=== PATIENT | female | born 1955 | race Caucasian/White ===

== ENCOUNTER 2020-02-23 13:03 | Outpatient (CLI) | payer BC, SELFPAY ==
--- NOTE | ~2020-02-23 | MMUS_ITS ---
EXAMINATION: MM diagnostic edmar LT w farhana, US breast LT complete HISTORY: Six-month follow-up; status post left partial mastectomy. Left breast seroma TECHNIQUE: ML, MLO and craniocaudal 3-D tomosynthesis images of the left breast were performed and sy nthetic 2-D images were generated. Rotated lateral craniocaudal view of left breast. CAD analysis was submitted and interpreted. High resolution complete left breast ultrasound was performed. COMPARISON: 08/07/2019 bilateral diagnostic digital mammogram and complete left breast ultrasound BREAST PARENCHYMAL COMPOSITION: The breasts are heterogeneously dense, which may obscure small masses . FINDINGS: MAMMOGRAPHIC FINDINGS: There is no significant change of the asymmetric increased density on the left as well as left breast nodule retraction and asymmetric skin thickening compared to 08/07/2019. No interval suspicious mass or new architectural distortion or any malignant calcification is evident . ULTRASOUND: Stable left breast seroma at 10:00 4 cm from nipple subjacent to surgical scar, with stable circumscr ibed benign homogeneous 9 mm solid mass within the seroma. There is no significant change since 08/07. IMPRESSION: 1. No mammographic evidence of malignancy 2. Routine mammographic screening is recommended. BIRADS Category 2: Benign Reviewed, dictated and finalized at location A. IMPRESSION: 1. No mammographic evidence of malignancy 2. Routine mammographic screening is recommended. BIRADS Category 2: Benign
== END 2020-02-23 13:04 | disposition home or self-care (01) ==
PROVIDERS: PCP Family Medicine; Visit Provider Radiology Radiation Oncology
DX: C50.812 Malignant neoplasm of overlapping sites of left female breast (principal)
CPT/HCPCS: 76641; 77061; 77065; G0279

== ENCOUNTER 2020-05-28 14:50 | Outpatient (CLI) | payer BC, SELFPAY ==
--- NOTE | ~2020-05-28 | DEXA_ITS ---
Bone Density Report Name: Vanessa Goncalves Age: 65 Sex: Female Ethnicity: White Date of : 1955 Indication: height loss; Referring Provider: PHYSICIAN NOT ON STAFF Study: Bone densitometry was performed. Exam Date: May 28, 2020 Accession number: [id number] Bone Density: Region BMD T-score Z-score Classification AP Spine (L3, L4) 1.180 0.7 2.4 Normal Femoral Neck (Left) 0.936 0.8 2.2 Normal Total Hip (Left) 1.232 2.4 3.5 Normal Total Hip Bilateral Avg 1.189 2.1 3.2 Normal Femoral Neck (Right) 0.935 0.8 2.2 Normal Total Hip (Right) 1.144 1.7 2.8 Normal World Health Organization criteria for BMD impression classify patients as: Normal (T-score at or above -1.0), Osteopenia (T-score between -1.0 and -2.5), or Osteoporosis (T-score at or below -2.5). 10-year Fracture Risk: FRAX not reported because: Premenopausal woman All T-scores for Spine Total, Hip Total, Femoral Neck at or above -1.0 Previous Exams: Region Exam Age BMD T-score BMD Change BMD Change Date g/cm2 vs Baseline vs Previous AP Spine(L3, L4) 05/28/2020 65 1.180 0.7 -0.018(-1.5%)# -0.018(-1.5%)# 05/08/2012 57 1.198 0.9 Total Hip(Left) 05/28/2020 65 1.232 2.4 0.099(8.7%)* 0.099(8.7%)* 05/08/2012 57 1.133 1.6 Total Hip(Right) 05/28/2020 65 1.144 1.7 0.067(6.2%)* 0.067(6.2%)* 05/08/2012 57 1.077 1.1 *Denotes significance at 95% confidence level, LSC for AP Spine = 0.022 g/cm2, LSC for Total Hip = 0.027 g/cm2 Clinical Information Provided by Patient: Patient maximum height was 69 Menopause Age: 57 No regular weight bearing exercise Onset of menses at age 15 Premenopausal Number of children 0 Impression: The patient's bone mass is within expected range for age, gender and ethnicity. No significant bone loss was observed. Discussion: BONE DENSITY IS WITHIN EXPECTED LIMITS FOR AGE, SEX AND RACE. Bone density is within expected limits for age, sex and race at all sites measured. The patient should follow a healthful lifestyle (good nutrition with adequate calcium and vitamin D, and appropriate weight-bearing exercise). Follow-Up: Consider repeating this study in 5 years or sooner if there is some new clinical indication. Reported by: LEÓN on 05/28/2020 3:15:00 PM. Reviewed, dictated and finalized at location [facility]onal[facility]
== END 2020-05-28 14:51 | disposition home or self-care (01) ==
PROVIDERS: PCP Family Medicine
DX: C50.212 Malignant neoplasm of upper-inner quadrant of left female breast (principal); Z17.0 Estrogen receptor positive status [ER+]
CPT/HCPCS: 77080

== ENCOUNTER 2020-08-13 13:25 | Outpatient (CLI) | payer BC, SELFPAY ==
--- NOTE | ~2020-08-13 | MMUS_ITS ---
EXAMINATION: MM diagnostic edmar BI w farhana, US breast LT limited HISTORY: History of left breast cancer. Prior surgery and radiation therapy. TECHNIQUE: Additional 3-D tomosynthesis images of the left breast were performed and synthetic 2-D im ages were generated. CAD analysis was submitted and interpreted. High resolution left breast ultrasou nd was performed. COMPARISON: Comparison to multiple prior studies sequentially, with oldest reviewed study dated 11/2017. BREAST PARENCHYMAL COMPOSITION: Breast composed of scattered areas of fibroglandular density FINDINGS: MAMMOGRAPHIC FINDINGS: The right breast is stable without evidence for malignancy. Asymmetry in the central aspect of the le ft breast corresponds to the area of previous lumpectomy and radiation therapy. There is overlying sk in thickening. ULTRASOUND: Limited left breast ultrasound: There is a complex fluid collection had 9:00 in the area of previous surgical scarring now measuring 3.6 x 2 x 3.5 cm. There is an associated echogenic mass. This complex fluid collection has diminished in size. It measured 5.2 x 2.5 x 4.7 cm on 02/23/2020 and 7.3 x 2.7 x 5.6 cm on 08/07/2019. IMPRESSION: 1. Decreasing size of complex fluid collection in the left breast, compatible with maturing postopera tive seroma/hematoma. No new masses, calcifications or architectural distortion are identified to sug gest malignancy. 2. Routine yearly screening mammogram and regular clinical breast examination are recommended. BI-RADS Category 2: Benign finding(s). Reviewed, dictated and finalized at location A. [employer] IMPRESSION: 1. Decreasing size of complex fluid collection in the left breast, compatible w ith maturing postoperative seroma/hematoma. No new masses, calcifications or ar chitectural distortion are identified to suggest malignancy. 2. Routine yearly screening mammogram and regular clinical breast examination a re recommended. BI-RADS Category 2: Benign finding(s).
== END 2020-08-13 13:26 | disposition home or self-care (01) ==
LOC: ANHIMG 13:28
PROVIDERS: PCP Family Medicine; Visit Provider Radiology Radiation Oncology
DX: C50.812 Malignant neoplasm of overlapping sites of left female breast (principal)
CPT/HCPCS: 76642; 77062; 77066; G0279

== ENCOUNTER 2020-11-10 17:47 | Outpatient (CLI) | payer BC, SELFPAY | END 2020-11-10 17:48 | disposition home or self-care (01) | LOC: ANHCOVIDVC 17:47 | PROVIDERS: PCP Family Medicine | DX: Z23 Encounter for immunization (principal) | CPT/HCPCS: 0001A; 91300 ==

== ENCOUNTER 2020-12-01 17:46 | Outpatient (CLI) | payer BC, SELFPAY | END 2020-12-01 17:47 | disposition home or self-care (01) | LOC: ANHCOVIDVC 17:46 | PROVIDERS: PCP Family Medicine | DX: Z23 Encounter for immunization (principal) | CPT/HCPCS: 0002A; 91300 ==

== ENCOUNTER 2022-03-01 15:07 | Outpatient (CLI) | payer BC, SELFPAY ==
--- NOTE | ~2022-03-01 | MM_ITS ---
EXAMINATION: MM screening [facility] BI w farhana HISTORY: Screening TECHNIQUE: Craniocaudal and mediolateral oblique 3-D tomosynthesis images were obtained and synthetic 2-D images were generated. CAD analysis was submitted and interpreted. COMPARISON: Comparison to multiple prior studies sequentially, with oldest reviewed study dated 10/21. BREAST PARENCHYMAL COMPOSITION: Breast composed of scattered areas of fibroglandular density FINDINGS: Stable asymmetry and architectural distortion in the left breast, consistent with previous lumpectomy and radiation therapy. There is no evidence of new suspicious mass, calcification, or arch itectural distortion to suggest malignancy in either breast. There has been no suspicious interval ch tyrel. IMPRESSION: 1. No mammographic evidence of malignancy. 2. Recommend routine screening mammography in one year. BI-RADS Category 2: Benign finding(s). Reviewed, dictated and finalized at location A.
== END 2022-03-01 15:08 | disposition home or self-care (01) ==
PROVIDERS: PCP Family Medicine
DX: Z12.31 Encounter for screening mammogram for malignant neoplasm of breast (principal)
CPT/HCPCS: 77063; 77067

== ENCOUNTER → 2023-06-27 11:02 | Outpatient (CLI) | payer MEDICARE, SELFPAY ==
--- NOTE | ~2023-06-27 | MM_ITS ---
EXAMINATION: MM screening edmar BI w farhana HISTORY: Screening mammogram TECHNIQUE: Craniocaudal and mediolateral oblique 3-D tomosynthesis images were obtained and synthetic 2-D images were generated. CAD analysis was submitted and interpreted. COMPARISON: Serial mammographic and sonographic examinations dating back to December 20, 2018 BREAST PARENCHYMAL COMPOSITION: There are scattered areas of fibroglandular density. FINDINGS: There is chronic left-sided mammographic asymmetry and architectural distortion and retract ion related to prior left partial mastectomy for breast cancer, with overall diminishing in size of t he asymmetric area of density consistent with scar retraction. There are scattered bilateral benign calcifications. There is no evidence of interval suspicious mass, calcification, or new architectural distortion to s uggest malignancy in either breast. There has been no suspicious interval change. IMPRESSION: 1. Status post left partial mastectomy for breast cancer. No mammographic evidence of malignancy. 2. Recommend routine screening mammography in one year. BI-RADS Category 2: Benign finding(s). Reviewed, dictated and finalized at location A. IMPRESSION: 1. Status post left partial mastectomy for breast cancer. No mammographic evide nce of malignancy. 2. Recommend routine screening mammography in one year. BI-RADS Category 2: Benign finding(s).
== END ==
PROVIDERS: PCP Family Medicine
DX: Z12.31 Encounter for screening mammogram for malignant neoplasm of breast (principal)
CPT/HCPCS: 77063; 77067

== ENCOUNTER 2023-11-14 13:22 | Outpatient (CLI) | payer MEDICARE, SELFPAY ==
--- NOTE | ~2023-11-14 | DEXA_ITS ---
Bone Density Report Name: VALERIE DESAI Age: 68 Sex: Female Ethnicity: White Date of : 1955 Indication: postmenopausal; screening for osteoporosis; height loss; cancer; hysterectomy; Referring Provider: UNKNOWN, UNKNOWN Study: Bone densitometry was performed. Exam Date: November 14, 2023 Accession number: [id number] Bone Density: Region BMD T-score Z-score Classification AP Spine (L3, L4) 1.183 0.7 2.7 Normal Femoral Neck (Left) 0.898 0.4 2.0 Normal Total Hip (Left) 1.137 1.6 2.9 Normal Femoral Neck (Right) 0.924 0.7 2.3 Normal Total Hip (Right) 1.055 0.9 2.2 Normal Total Hip Mean 1.096 1.3 2.6 Normal World Health Organization criteria for BMD impression classify patients as: Normal (T-score at or above -1.0), Osteopenia (T-score between -1.0 and -2.5), or Osteoporosis (T-score at or below -2.5). 10-year Fracture Risk: FRAX not reported because: All T-scores for Spine Total, Hip Total, Femoral Neck at or above -1.0 Clinical Information Provided by Patient: Has used the following medications: Vitamin D Has the following medical conditions: Cancer, Hysterectomy Patient maximum height was 69 Menopause Age: 56 No regular weight bearing exercise Drinks caffeinated beverages Onset of menses at age 15 Number of children 0 Impression: The patient has normal bone mass. Discussion: BONE DENSITY IS ABOVE THE MINIMUM DESIRABLE LEVEL AT ALL SKELETAL SITES TESTED. This patient?s bone mineral density is above the minimum desirable level (T-score -1.0 or better) at all sites measured. The patient should follow a healthful lifestyle (good nutrition with adequate calcium and vitamin D, and appropriate weight-bearing exercise). Follow-Up: Consider repeating this study in 5 years or sooner if there is some new clinical indication. Reported by: LEÓN on 11/14/2023 1:56:00 PM. Reviewed, dictated and finalized at location ALian SUN
== END 2023-11-14 13:23 ==
PROVIDERS: PCP Family Medicine
DX: C50.212 Malignant neoplasm of upper-inner quadrant of left female breast (principal); Z17.0 Estrogen receptor positive status [ER+]; Z79.811 Long term (current) use of aromatase inhibitors
CPT/HCPCS: 77080

== ENCOUNTER 2024-01-09 15:21 | Outpatient (CLI) | payer MEDICARE, SELFPAY ==
--- NOTE | ~2024-01-09 | XR_ITS ---
EXAMINATION:XR cervical spine 4-5V DATE: 01/09/2024 16:22 INDICATION: Cervical radiculopathy with left arm and hand pain and numbness TECHNIQUE: AP, lateral, lateral swimmers and odontoid views of the cervical spine are provided. COMPARISON: None FINDINGS: Alignment is normal. Odontoid is intact. Normal atlantoaxial interval. Vertebral body heights are no rmal. Moderate disc height loss at C5-C6 and C6-C7. There appears be at least mild central canal sten osis resulting from prominent posterior endplate osteophyte at C5. There is multilevel mild cervical facet osteoarthritis. Visualized apices of lungs are clear. Prevertebral soft tissues are normal. IMPRESSION: 1. Moderate lower cervical spondylosis. Reviewed, dictated and finalized at location A.
== END 2024-01-09 15:22 ==
LOC: GOSHIMG 15:22
PROVIDERS: PCP Family Medicine; Visit Provider Family Medicine
DX: M47.22 Other spondylosis with radiculopathy, cervical region (principal)
CPT/HCPCS: 72050

== ENCOUNTER 2024-03-11 06:33 | Inpatient (IN) | payer MEDICARE, SELFPAY ==
[2024-03-11] VITALS (19 sets, daily range): BP systolic 118–204; BP diastolic 59–89; PULSE 69–94; RESP 14–18; TEMP 36.4–36.7; O2SAT 94–100; BMI 42.4
--- NOTE | ~2024-03-11 | XR_ITS ---
EXAMINATION: XR surgery orthopedic DATE: 03/12/2024 09:47 INDICATION: ORIF right ankle fracture TECHNIQUE: 2 fluoroscopic images of the right ankle were obtained during procedure performed by Dr. Miguel A cochran. Radiologist was not present for the imaging or procedure. The amount of fluoroscopy time use d during this procedure was 0.5 minutes. COMPARISON: 03/11/2024 FINDINGS: Interval reduction and internal fixation of the previously seen trimalleolar fracture of the right an kle. The medial malleolar fractures fixed with a cannulated lag screw. The lateral malleolar fracture s fixed with a interfragmentary screw and lateral plate and screws. The posterior malleolar fragment remains unfixed. The alignment is essentially anatomic with no discernible displacement of the fractu re fragments. The joint space appears normal with a congruent ankle mortise. Minimal expected postope rative soft tissue gas. IMPRESSION: 1. Essentially anatomic alignment post reduction internal fixation of a trimalleolar fracture of the right ankle. Reviewed, dictated and finalized at location A. IMPRESSION: 1. Essentially anatomic alignment post reduction internal fixation of a trimall eolar fracture of the right ankle.
--- NOTE | ~2024-03-11 | XR_ITS ---
Right ankle Technique: AP, oblique, and lateral views were obtained. Clinical History: Injury Findings: There is oblique, displaced fracture the distal fibular shaft, approximately 3.5 cm proxima l to the tip lateral malleolus. There is a transverse displaced fracture through the base the medial malleolus. There is a probable posterior annulus fracture, also mildly displaced. There is moderate t o severe lateral subluxation of the talar dome with respect to the distal tibial plafond on AP projec tion, with associated marked widening of the medial aspect of ankle mortise. There is diffuse soft ti ssue swelling about the ankle. Impression: Displaced acute probable trimalleolar fractures, as detailed above, with significant derangement of t he ankle mortise, as detailed above. Reviewed, dictated and finalized at location . Impression: Displaced acute probable trimalleolar fractures, as detailed above, with signif icant derangement of the ankle mortise, as detailed above.
--- NOTE | ~2024-03-11 | XR_ITS ---
XR ankle RT min 3V Ordering provider: Jarred Odonnell MD History: . Post reduction . Comparison: March 11, 2024 FINDINGS: BONES: Fracture of the medial and lateral malleoli with status post placement of cast. Alignment is i mproved. JOINT SPACES: Normal. SOFT TISSUES: Swelling seen over the medial and lateral malleoli. IMPRESSION: Bimalleolar fractures status post placement of cast. Reviewed, dictated and finalized at location A.
[2024-03-11] MEDS: HYDROmorphone HCL INJ (*CRX) 1 MG/ML SYR IV PUSH (07:16)
[2024-03-11] MEDS: ONDANSETRON INJ 4 MG/2 ML VIAL IV PUSH (07:16)
[2024-03-11] MEDS: MIDAZOLAM HCL (*CRX) 2 MG/2 ML VIAL 4 MG IV PUSH (07:34)
[2024-03-11 07:54] LABS: Basophils Percent Auto 0.6 % (0.2-1.2); Eosinophils Absolute Auto 0.1 K/mm3 (0-0.3); Eosinophils Percent Auto 1.7 % (0-4.4); Hematocrit 33.3 % (37.0-47.0); Hemoglobin 10.2 g/dL (12.0-15.0); Immature Granulocyte Absolute 0.01 K/mm3 (0.00-0.031); Immature Granulocyte Percent A 0.2 % (0-0.5); Lymphocytes Absolute Auto 0.63 K/mm3 (0.9-3.2); Lymphocytes Percent Auto 9.8 % (18.3-44.2); Mean Corpuscular HGB Conc 30.6 g/dl (32-36); Mean Corpuscular Hemoglobin 25.8 pg (26-34); Mean Corpuscular Volume 84.3 fl (80-100); Mean Platelet Volume 11.2 fl (7.4-10.4); Monocytes Absolute Auto 0.7 K/mm3 (0.1-0.6); Monocytes Percent Auto 10.1 % (2.6-8.5); Neutrophils Percent Auto 77.6 % (45.5-73.1); Platelet Count Result 279 k/mm3 (150-375); Red Blood Count 3.95 M/mm3 (4.2-5.4); Red Cell Distribution Width 16.9 % (11.5-14.5); White Blood Count 6.4 K/mm3 (4.5-10.0)
[2024-03-11 08:06] LABS: Alanine Aminotransferase 29 U/L (6-35); Albumin Level 4.1 g/dL (3.5-5.1); Alkaline Phosphatase 127 U/L (38-126); Anion Gap 11 mmol/L (4-12); Aspartate Amino Transferase 33 U/L (14-36); Bilirubin,Total 0.5 mg/dL (0.2-1.3); Blood Urea Nitrogen 15 mg/dL (7-17); Calcium 9.5 mg/dL (8.4-10.2); Carbon Dioxide 23 mmol/L (22-30); Chloride 102 mmol/L (98-107); Estimated CRCL calculation 90 ml/min; Estimated Glomerular Filt Rate > 60; Glucose 137 mg/dL (65-110); Potassium 3.9 mmol/L (3.4-5.0); Sodium 136 mmol/L (137-145)
[2024-03-11 08:26] LABS: INR 1.2; Prothrombin Time 15.8 Seconds (11.1-14.7)
--- NOTE | 2024-03-11 08:35 | ED.FALL ---
HPI - Fall General Chief Complaint: Fall Stated Complaint: fall Time Seen by Provider: 03/11/24 07:00 History of Present Illness HPI Narrative: This is a 68-year-old female with history of iron deficiency and hypertension, presents emergency department complaining of right ankle pain after a ground fall. The patient states she was walking in her bedroom, when she slipped on carpet, resulting in the forced rotation of her ankle, associated with 9/10 dull pain and displacement. She denies head injury or loss of consciousness. She has no other complaints at this time. Related Data Home Medications Medication Instructions Recorded Confirmed ferrous sulfate 325 mg (65 mg 325 mg PO BID 08/05/19 03/11/24 iron) tablet (iron) ibuprofen 800 mg tablet 800 mg PO Q6H 06/13/23 03/11/24 Allergies Allergy/AdvReac Type Severity Reaction Status Date / Time pentazocine Allergy Severe Confusion Verified 03/11/24 10:51 clindamycin Allergy Intermediate Itching Verified 03/11/24 10:51 trolamine salicylate Allergy Intermediate RASH OVER Verified 03/11/24 10:51 ALL BODY adhesive tape Allergy Mild Other Verified 03/11/24 10:51 latex Allergy Mild Itching Verified 03/11/24 10:51 levothyroxine Allergy Mild Rash Verified 03/11/24 10:51 bacitracin Allergy Unknown Unknown Verified 03/11/24 10:51 benzalkonium chloride Allergy Unknown Unknown Verified 03/11/24 10:51 epinephrine Allergy Unknown Unknown Verified 03/11/24 10:51 gramicidin D Allergy Unknown Unknown Verified 03/11/24 10:51 hydrocortisone Allergy Unknown Unknown Verified 03/11/24 10:51 lamotrigine Allergy Unknown Rash Verified 03/11/24 10:51 levofloxacin Allergy Unknown Skin Verified 03/11/24 10:51 Reaction morphine Allergy Unknown family hx Verified 03/11/24 10:51 neomycin Allergy Unknown Rash Verified 03/11/24 10:51 omeprazole Allergy Unknown Unknown Verified 03/11/24 10:51 Penicillins Allergy Unknown Unknown Verified 03/11/24 10:51 polymyxin B Allergy Unknown Unknown Verified 03/11/24 10:51 codeine AdvReac Unknown sick to Verified 03/11/24 10:51 stomach ethanolamine AdvReac Unknown vertigo Verified 03/11/24 10:51 nortriptyline AdvReac Unknown headaches Verified 03/11/24 10:51 worse Sulfa (Sulfonamide AdvReac Unknown sick to Verified 03/11/24 10:51 Antibiotics) stomach Review of Systems Review of Systems: All systems reviewed & are unremarkable except as noted in HPI and below PMFSH Past Medical History Medical History Bartonella infection Iron deficiency anemia, unspecified Trapezius strain Surgical History Surgical History H/O: hysterectomy History of lumpectomy of left breast Family History Family History Father Family history of cardiovascular disease Diabetes mellitus Family history of malignant neoplasm Mother Cerebrovascular accident Social History Social History Smoking status: Never smoker Alcohol intake: never Alcohol use details: half a beer once a month Substance use: never Substance use type: does not use Do You Feel Safe in your Home?: Yes Lack of Transportation: No Lack of Food: Never True Current Housing: I Have Housing Concerned About Future Housing: No Difficulty Paying Gas/Electric Bills: No Difficulty Paying for Meds: No Currently Unemployed: No Education: Decline to Answer Difficulty w/ Childcare or Family Care: No Living arrangements: with family Spiritual care concerns: No Exam Narrative: GENERAL: Well-developed, well-nourished, in significant distress due to pain HEAD: Normocephalic, atraumatic. EYES: PERRLA and EOMI. NECK: Supple. No midline spine tenderness to palpation, step-off or crepitus CHEST: Clear to auscultation. No respiratory distress. No wheeze
[2024-03-11] MEDS: SODIUM CHLORIDE 0.9% IV 1,000 ML 999 ML IV CONT (09:32)
--- NOTE | 2024-03-11 09:43 | PM.CNOR ---
Assessment and Plan Assessment and plan (1) Trimalleolar fracture of right ankle: Code(s): S82.851A - Displaced trimalleolar fracture of right lower leg, initial encounter for closed fracture Status: Acute Assessment and Plan: Patient has a trimalleolar ankle fracture right. She will require open reduction internal fixation with plates and screws. Plan on proceeding tomorrow morning. Depending on the amount of swelling she has in her ankle. History of Present Illness HPI Consult date: 03/11/24 Chief complaint: right ankle trimalleolar fracture Narrative: 68-year-old female fell on a rug suffering a trimalleolar fracture of her right ankle. Review of Systems Musculoskeletal: Musculoskeletal: Reports myalgias, Reports arthralgias, Reports joint swelling and Reports stiffness PMFSH Past Medical History Medical History Bartonella infection Iron deficiency anemia, unspecified Trapezius strain Surgical History Surgical History H/O: hysterectomy History of lumpectomy of left breast Family History Family History Father Family history of cardiovascular disease Diabetes mellitus Mother Cerebrovascular accident Other Family history of malignant neoplasm Social History Social History Smoking status: Never smoker Alcohol intake: current Alcohol use details: half a beer once a month Substance use: current Substance use type: does not use Do You Feel Safe in your Home?: Yes Lack of Transportation: No Lack of Food: Never True Current Housing: I Have Housing Concerned About Future Housing: No Difficulty Paying Gas/Electric Bills: No Difficulty Paying for Meds: No Currently Unemployed: No Education: Master's Degree or Higher Difficulty w/ Childcare or Family Care: No Living arrangements: with family Meds Home Medications and Allergies Home Medications Medication Instructions Recorded Confirmed Type ferrous sulfate 325 mg (65 mg 325 mg PO BID 08/05/19 01/08/24 History iron) tablet (iron) ibuprofen 800 mg tablet 800 mg PO Q6H 06/13/23 01/08/24 History amitriptyline 10 mg tablet See Rx Instructions .Route 09/17/23 01/08/24 Rx .COMPLEX #270 tabs telmisartan 20 mg tablet 20 mg PO DAILY #90 tabs 01/08/24 01/08/24 Rx cyclobenzaprine 5 mg tablet 5 mg PO BID PRN muscle spasm #60 01/29/24 Rx tabs spironolactone 25 mg tablet 25 mg PO .COMPLEX #60 tabs 02/05/24 Rx Allergies Allergy/AdvReac Type Severity Reaction Status Date / Time pentazocine Allergy Severe Confusion Verified 01/08/24 15:02 clindamycin Allergy Intermediate Itching Verified 01/08/24 15:02 trolamine salicylate Allergy Intermediate RASH OVER Verified 01/08/24 15:02 ALL BODY adhesive tape Allergy Mild Other Verified 01/08/24 15:02 levothyroxine Allergy Mild Rash Verified 01/08/24 15:02 bacitracin Allergy Unknown Unknown Verified 01/08/24 15:02 benzalkonium chloride Allergy Unknown Unknown Verified 01/08/24 15:02 epinephrine Allergy Unknown Unknown Verified 01/08/24 15:02 gramicidin D Allergy Unknown Unknown Verified 01/08/24 15:02 hydrocortisone Allergy Unknown Unknown Verified 01/08/24 15:02 lamotrigine Allergy Unknown Rash Verified 01/08/24 15:02 latex Allergy Unknown Unknown Verified 01/08/24 15:02 levofloxacin Allergy Unknown Skin Verified 01/08/24 15:02 Reaction morphine Allergy Unknown family hx Verified 01/08/24 15:02 neomycin Allergy Unknown Unknown Verified 03/11/24 07:15 omeprazole Allergy Unknown Unknown Verified 01/08/24 15:02 Penicillins Allergy Unknown Unknown Verified 01/08/24 15:02 polymyxin B Allergy Unknown Unknown Verified 03/11/24 07:15 codeine AdvReac Unknown sick to Verified 03/11/24 07:15 stomach ethanolamine AdvReac Unknown vertigo V
--- NOTE | 2024-03-11 10:38 | PC.NURSE ---
This patient, Vanessa Goncalves, was admitted to 3 [facility] Surg Room 313-01 10:30. Patient/family oriented to hospital policies and general routines including ID bracelet, bed and alarms, visiting hours, pain management, procedures, bathroom and other care routines, personal items, smoking policy, room service/diet, and visiting hours. Information on how to activate the Rapid Response Team has been discussed. Patient/Family are encouraged to report perceived risks to care and to ask questions if they do not understand what they are told or what they should do.
[2024-03-11] MEDS: DEXTROSE 5%/LACTATED RINGERS 1,000 ML 150 ML IV CONT ×2 (11:51→21:11)
--- NOTE | 2024-03-11 13:26 | PM.IMHP ---
H&P: HPI History of Present Illness Date/Time: 03/11/24 13:26 Chief Complaint: Right foot pain s/p fall Narrative: Vanessa Goncalves is a 68 year old female with PMH of SARA and atypical migraines presents from home after slipping and falling with resulting injury to the right foot. She denies any loss of consciousness. She states she did not striker her head. She does not report frequent falls. She describes the incident as having slipped when getting up to obtain an ibuprofen. Vanessa describes a history of atypical migraines with neurological presentations (slurred speech, left eye drooping) and recent workup for generalized muscle spasms/pain. She has seen specialty care without clear answers as of yet, but is having some symptoms today of left lower ext. spasming. This is reportedly improved with hot/cold therapy which she is utilizing now. Vanessa presented and had imaging findings of a bimalleoloar fracture of the right ankle. Orthopedics was consulted and there is a plan for ORIF tomorrow am. With the exception of a mild anemia, hgb 10, labwork was essentially unremarkable. Vanessa will be admitted for further management of the right ankle fracture. Review of Systems Review of Systems: CONSTITUTIONAL: ?No weight loss, fever, chills, weakness, or fatigue. CARDIOVASCULAR: ?No chest pain, chest pressure or chest discomfort. No palpitations.? No PND or orthopnea. RESPIRATORY: ?No shortness of breath, cough or sputum. GASTROINTESTINAL: ?No anorexia, nausea, vomiting, constipation, or diarrhea. No abdominal pain or bloody stools. NEUROLOGICAL: Chronic atypical migraine symptoms with muscle spasms and intermittent slurred speech. MUSCULOSKELETAL: ?See hpi. HEMATOLOGIC: ?States history of SARA. ROS negative other than listed above across 14 systems [facility] Past Medical History Medical History Bartonella infection Iron deficiency anemia, unspecified Trapezius strain Surgical History Surgical History H/O: hysterectomy History of lumpectomy of left breast Family History Family History Father Family history of cardiovascular disease Diabetes mellitus Family history of malignant neoplasm Mother Cerebrovascular accident Social History Social History Smoking status: Never smoker Alcohol intake: never Alcohol use details: half a beer once a month Substance use: never Substance use type: does not use Do You Feel Safe in your Home?: Yes Lack of Transportation: No Lack of Food: Never True Current Housing: I Have Housing Concerned About Future Housing: No Difficulty Paying Gas/Electric Bills: No Difficulty Paying for Meds: No Currently Unemployed: No Education: Decline to Answer Difficulty w/ Childcare or Family Care: No Living arrangements: with family Spiritual care concerns: No Meds Home Medications and Allergies Home Medications Medication Instructions Recorded Confirmed Type ferrous sulfate 325 mg (65 mg 325 mg PO BID 08/05/19 03/11/24 History iron) tablet (iron) ibuprofen 800 mg tablet 800 mg PO Q6H 06/13/23 03/11/24 History amitriptyline 10 mg tablet See Rx Instructions .Route 09/17/23 03/11/24 Rx .COMPLEX #270 tabs telmisartan 20 mg tablet 20 mg PO DAILY #90 tabs 01/08/24 03/11/24 Rx cyclobenzaprine 5 mg tablet 5 mg PO BID PRN muscle spasm #60 01/29/24 03/11/24 Rx tabs spironolactone 25 mg tablet 25 mg PO .COMPLEX #60 tabs 02/05/24 03/11/24 Rx Allergies Allergy/AdvReac Type Severity Reaction Status Date / Time pentazocine Allergy Severe Confusion Verified 03/11/24 10:51 clindamycin Allergy Intermediate Itching Verified 03/11/24 10:51 trolamine salicylate Allergy Intermediate RASH OVER Verified 03/11/24 10:51
[2024-03-11] MEDS: HYDROcodone/acetaminophen (*CRX) 5-325 MG TABLET 1 TAB PO ×2 (15:26→23:22)
[2024-03-11] MEDS: IBUPROFEN 600 MG TABLET PO (19:02)
[2024-03-11] MEDS: HYDROmorphone HCL INJ (*CRX) 1 MG/ML SYR 0.5 MG IV PUSH (19:03)
[2024-03-12] VITALS (18 sets, daily range): BP systolic 107–170; BP diastolic 64–100; PULSE 55–93; RESP 12–20; TEMP 36.1–36.7; O2SAT 91–99
[2024-03-12] MEDS: HYDROcodone/acetaminophen (*CRX) 5-325 MG TABLET 1 TAB PO ×2 (03:04→15:06)
[2024-03-12] MEDS: DEXTROSE 5%/LACTATED RINGERS 1,000 ML 150 ML IV CONT (04:23)
[2024-03-12] MEDS: HYDROmorphone HCL INJ (*CRX) 1 MG/ML SYR 0.5 MG IV PUSH ×4 (06:04→22:22)
--- NOTE | 2024-03-12 06:46 | WPDHPUPDATE1 ---
History and Physical Update Update Date/Time: 03/12/24 06:46 History and Physical has been reviewed, including an updated exam of the patient. There are NO changes in the patient's condition. Risks, benefits, and alternatives have been discussed and questions answered. Patient agrees to proceed with procedure.
[2024-03-12] MEDS: FLUTICASONE PROPIONATE 0.05% NA SPR 16 GM BTL (*BKC) 2 SPRAY NASAL (06:50)
[2024-03-12 07:04] LABS: Anion Gap 11 mmol/L (4-12); Blood Urea Nitrogen 12 mg/dL (7-17); Calcium 9.2 mg/dL (8.4-10.2); Carbon Dioxide 23 mmol/L (22-30); Chloride 101 mmol/L (98-107); Estimated CRCL calculation 103 ml/min; Estimated Glomerular Filt Rate > 60; Glucose 133 mg/dL (65-110); Potassium 4.4 mmol/L (3.4-5.0); Sodium 135 mmol/L (137-145)
[2024-03-12 07:11] LABS: Basophils Percent Auto 0.5 % (0.2-1.2); Eosinophils Absolute Auto 0.1 K/mm3 (0-0.3); Eosinophils Percent Auto 2.2 % (0-4.4); Hematocrit 34.4 % (37.0-47.0); Immature Granulocyte Absolute 0.02 K/mm3 (0.00-0.031); Immature Granulocyte Percent A 0.3 % (0-0.5); Lymphocytes Percent Auto 13.5 % (18.3-44.2); Mean Corpuscular HGB Conc 29.1 g/dl (32-36); Mean Corpuscular Hemoglobin 25.6 pg (26-34); Mean Platelet Volume 11.7 fl (7.4-10.4); Monocytes Absolute Auto 0.8 K/mm3 (0.1-0.6); Monocytes Percent Auto 13.8 % (2.6-8.5); Neutrophils Absolute Auto 4.1 K/mm3 (1.3-6.7); Neutrophils Percent Auto 69.7 % (45.5-73.1); Platelet Count Result 276 k/mm3 (150-375); Red Blood Count 3.91 M/mm3 (4.2-5.4); Red Cell Distribution Width 17.1 % (11.5-14.5); White Blood Count 5.9 K/mm3 (4.5-10.0)
--- NOTE | 2024-03-12 07:38 | PC.NURSE ---
To OR per [DEMETRIS ], IV [ ]. Report given to [ ].
--- NOTE | 2024-03-12 08:02 | WPDANESEPPF ---
Anes - Initial Pre Proc Eval Procedure: Operation Date: 03/12/24 08:30 Proposed Procedures p Open Reduction Internal Fixation Right Ankle - Rodney Francis MD Date/Time: 03/12/24 08:02 Surgeon: Coretta Jean-Baptiste PA-C Pre Op Diagnosis: right ankle trimalleolar fracture Patient Data Age: 68 Gender: F Height: 1.68 m Weight: 119.3 kg Last Vital Signs Temp 36.5 C 03/12/24 05:44 Pulse 93 03/12/24 05:44 Resp 18 03/12/24 05:44 BP 152/90 H 03/12/24 06:48 Pulse Ox 97 03/12/24 05:44 O2 Del Method Nasal Cannula 03/11/24 12:00 O2 Flow Rate 1 03/11/24 12:00 Allergies Allergy/AdvReac Type Severity Reaction Status Date / Time pentazocine Allergy Severe Confusion Verified 03/11/24 10:51 clindamycin Allergy Intermediate Itching Verified 03/11/24 10:51 trolamine salicylate Allergy Intermediate RASH OVER Verified 03/11/24 10:51 ALL BODY adhesive tape Allergy Mild Other Verified 03/11/24 10:51 latex Allergy Mild Itching Verified 03/11/24 10:51 levothyroxine Allergy Mild Rash Verified 03/11/24 10:51 bacitracin Allergy Unknown Unknown Verified 03/11/24 10:51 benzalkonium chloride Allergy Unknown Unknown Verified 03/11/24 10:51 epinephrine Allergy Unknown Unknown Verified 03/11/24 10:51 gramicidin D Allergy Unknown Unknown Verified 03/11/24 10:51 hydrocortisone Allergy Unknown Unknown Verified 03/11/24 10:51 lamotrigine Allergy Unknown Rash Verified 03/11/24 10:51 levofloxacin Allergy Unknown Skin Verified 03/11/24 10:51 Reaction morphine Allergy Unknown family hx Verified 03/11/24 10:51 neomycin Allergy Unknown Rash Verified 03/11/24 10:51 omeprazole Allergy Unknown Unknown Verified 03/11/24 10:51 Penicillins Allergy Unknown Unknown Verified 03/11/24 10:51 polymyxin B Allergy Unknown Unknown Verified 03/11/24 10:51 codeine AdvReac Unknown sick to Verified 03/11/24 10:51 stomach ethanolamine AdvReac Unknown vertigo Verified 03/11/24 10:51 nortriptyline AdvReac Unknown headaches Verified 03/11/24 10:51 worse Sulfa (Sulfonamide AdvReac Unknown sick to Verified 03/11/24 10:51 Antibiotics) stomach Home Medications Medication Instructions Recorded Confirmed Type ferrous sulfate 325 mg (65 mg 325 mg PO BID 08/05/19 03/11/24 History iron) tablet (iron) ibuprofen 800 mg tablet 800 mg PO Q6H 06/13/23 03/11/24 History amitriptyline 10 mg tablet See Rx Instructions .Route 09/17/23 03/11/24 Rx .COMPLEX #270 tabs telmisartan 20 mg tablet 20 mg PO DAILY #90 tabs 01/08/24 03/11/24 Rx cyclobenzaprine 5 mg tablet 5 mg PO BID PRN muscle spasm #60 01/29/24 03/11/24 Rx tabs spironolactone 25 mg tablet 25 mg PO .COMPLEX #60 tabs 02/05/24 03/11/24 Rx Laboratory Tests 03/11/24 03/12/24 07:49 06:12 WBC Pending RBC Pending Hgb Pending Hct Pending MCV Pending MCH Pending MCHC Pending RDW Pending Plt Count Pending MPV Pending Immature Gran % (Auto) Pending Neut % (Auto) Pending Lymph % (Auto) Pending [place] % (Auto) Pending Eos % (Auto) Pending Baso % (Auto) Pending Lymph # (Auto) Pending [place] # (Auto) Pending Eos # (Auto) Pending Baso # (Auto) Pending Abs Immat Gran (auto) Pending Absolute Neuts (auto) Pending Absolute Nucleated RBC Pending Nucleated RBC % Pending PT 15.8 H Seconds (11.1-14.7) INR 1.2 Sodium 136 L mmol/L 135 L mmol/L (137-145) (137-145) Potassium 3.9 mmol/L 4.4 mmol/L (3.4-5.0) (3.4-5.0) Chloride 102 mmol/L 101 mmol/L (98-107) (98-107) Carbon Dioxide 23 mmol/L 23 mmol/L (22-30) (22-30) Anion Gap 11 mmol/L 11 mmol/L (4-12) (4-12) BUN 15 mg/dL 12 mg/dL (7-17) (7-17) Creatinine 0.70 mg/dL 0.60 L mg/dL (0.7-1.0) (0.7-1.0) Estim Creat Clear Calc 90 ml/min 103 ml/min
[2024-03-12 08:03] LABS: Anisocytosis 1+; Hypochromasia 1+; Ovalocytes 1+; Platelet Estimate Adequate (Adequate); Schistocytes Rare
--- NOTE | 2024-03-12 08:29 | SUR.PREOP ---
0802-Dr. Cramer states EKG not needed.
[2024-03-12] MEDS: ceFAZolin 2 GM/D5W 50 ML 2 GM/50 ML BAG IVPB ×3 (08:38→23:21)
--- NOTE | 2024-03-12 08:55 | PM.IMPN ---
Progress Note: A&P Assessment and Plan (1) Trimalleolar fracture of right ankle: Code(s): S82.851A - Displaced trimalleolar fracture of right lower leg, initial encounter for closed fracture Status: Acute Assessment and Plan: Patient reports a mechanical fall that resulted in a displaced acute probable trimalleolar fractures with significant derangement of the ankle mortise. Denies LOC and head trauma. - Ankle XR: displaced acute probable trimalleolar fractures with significant derangement of the ankle mortise. - Ankle XR: s/p cast placement - s/p ORIF bimalleolar components on 03/[address] Francis - PT/OT per ortho - DVT ppx per ortho (2) Migraine without aura, intractable, without status migrainosus: Code(s): G43.019 - Migraine without aura, intractable, without status migrainosus Status: Acute Assessment and Plan: Patient has long history of atypical migraine with neurological symptoms including slurred speech, weakness, and muscle spasms. She notes that she stopped all medications other than iron approximately 3 weeks ago. She has improvement with supplemental o2, hot/cold therapy and ibuprofen per her report. She is 100% on 1L (utilized for headache, no pulmonary complaints) - PCP following, referral made to neurology at last appointment (3) Iron deficiency: Code(s): E61.1 - Iron deficiency Status: Acute Assessment and Plan: Chronic, continue iron supplementation. No signs of active bleeding. - Monitor with daily labs Time Spent With Patient Time with patient: 25 - 35 minutes Subjective Date/time seen: 03/12/24 08:55 Interval history: 68 year old female with past medical history of iron deficiency anemia and migraines presents to the hospital after a mechanical fall resulting in a displaced acute probable trimalleolar fractures with significant derangement of the ankle mortise. Patient is pleasant lying comfortably in bed with family at bedside. Patient is now s/p ORIF bimalleolar components. She states that the pain is well controlled at this time. She has full sensation. Patient states that she has stopped all of her medications besides iron approximately three weeks ago as she thought these were the cause of her symptoms of gait instability, muscle spasms and pain. She states that since stopping these medications the symptoms have improved. She is now managing her migraines with hot/cold therapy, ibuprofen and oxygen supplementation. At her last PCP appointment a neurology referral was placed. Review of Systems Review of Systems: All systems reviewed & are unremarkable except as noted in HPI and below Exam Narrative: AF HR 62 RR 16 SpO2 98 1L NC BP 114/84 General: female in no acute respiratory distress who is nontoxic appearing, lying semi recumbent in bed. HEENT: Normocephalic. Atraumatic. Extraocular movement intact. Sclera clear and anicteric. No facial asymmetry. Chest: Lungs are clear to auscultation bilaterally. No wheezes or crackles. CV: Heart was regular rate and rhythm. S1-S2. No murmurs, gallops, or rubs. Abd: Abdomen was soft. Nontender. Nondistended. Positive bowel sounds. No organomegaly or masses. Ext: RLE in walking boot. Sensation and movement of the toes intact. Neuro: Patient is alert and oriented x4. Cranial nerves 2-12 are intact. Speech is clear. Psych: Normal mood and affect. Patient is pleasant and cooperative. Skin: Warm and dry. No rashes noted. Objective Data Vital Signs Vital Signs: Vital Signs - 24 hr 03/11/24 09:00 03/11/24 09:30 03/11/24 12:00 Temperature 97.7 F 97.6 F Pulse Rate Pulse Rate [Monitor] 74 74 Respiratory Rate 16 16 Blood Pressure Blood Pressure [Left Arm] 120/64 128/79 Pulse Oximetry 98 98 98 Oxygen Delivery Room Air Room Air Nasal Cannula Oxygen Flow Rate 1 03/11/24 20:56 03/12/24 05:44 03/12/24 06:48 Temperature 98.1 F 97.7 F Pulse Rate 69 93 Pulse Rate [Monitor] Re
--- NOTE | 2024-03-12 09:45 | W.PM.PROC2 ---
Procedure Note - Detailed Date of Procedure 03/12/24 Pre-op Diagnosis Right ankle trimalleolar fracture Post-op Diagnosis Same Procedure Performed Open reduction internal fixation bimalleolar components. Surgeon Rodney Francis MD Social Insurance Analyst Sydni Whitehead Anesthesia General Description of Procedure Patient brought to operating room 7. General anesthetic was administered. She was sterilely prepped and draped in usual manner. Of note is the fact she had a large blister anteromedially over the right ankle. A longitudinal incision made laterally dissection carried down the fascia the. The fracture was identified reduced and secured with an interfragmentary screw and a 7 hole plate. Excellent alignment and reasonable fixation was obtained. Her bones were osteoporotic. I then proceeded medially a longitudinal incision made over the tip of the medial malleolus. The the medial malleolus reduced and held with a cannulated screw. X-rays mortise and a lateral views demonstrated what appeared to be anatomic alignment of the fractures. Wounds irrigated. Hemostasis obtained. And closed with the 2.0 Vicryl and racquel. The dressing was applied along with a as cam walker. Drains No Complications No immediate complications Condition Stable Disposition PACU [facility] Billing Surgery - Charge Forward: Surgery Billing (ORIF Trimalleolar ankle fracture [id number])
[2024-03-12] MEDS: LACTATED RINGERS 1,000 ML 30 ML IV CONT (09:57)
--- NOTE | 2024-03-12 10:12 | SUR.OPER ---
SMALL SKIN TEAR OF RIGHT MEDIAL ANKLE NOTED PREVIOUSLY ASSESSED PRIOR TO DRESSING APPLICATION/SITE REMAINS UNCHANGED
--- NOTE | 2024-03-12 11:21 | PC.NURSE ---
Returned from OR per [ ]. Report received from [ Mayra].
[2024-03-12] MEDS: DEXTROSE 5%/0.45% SOD CHL 1,000 ML 80 ML IV CONT (12:28)
[2024-03-12] MEDS: IBUPROFEN 600 MG TABLET PO (13:11)
[2024-03-12] MEDS: ONDANSETRON INJ 4 MG/2 ML VIAL IV PUSH ×2 (16:31→23:30)
[2024-03-12] MEDS: SENNA/DOCUSATE SODIUM TABLET 2 TAB PO (16:33)
[2024-03-12] MEDS: HYDROcodone/acetaminophen (*CRX) 5-325 MG TABLET 2 TAB PO (18:31)
[2024-03-12 20:18] LABS: Glucose Point of Care 143 mg/dl (65-105)
[2024-03-12] MEDS: ACETAMINOPHEN 325 MG TABLET 650 MG PO (22:22)
[2024-03-13] VITALS (7 sets, daily range): BP systolic 125–153; BP diastolic 72–94; PULSE 76–90; RESP 16–20; TEMP 35.6–36.7; O2SAT 90–99
[2024-03-13] MEDS: HYDROcodone/acetaminophen (*CRX) 5-325 MG TABLET 1 TAB PO ×2 (00:21→03:12)
[2024-03-13] MEDS: HYDROcodone/acetaminophen (*CRX) 5-325 MG TABLET 2 TAB PO ×5 (05:30→20:58)
[2024-03-13] MEDS: IBUPROFEN 600 MG TABLET PO ×2 (07:55→15:25)
[2024-03-13] MEDS: polyethylene glycoL 3350 17 GM POWD.PACK PO (07:55)
[2024-03-13] MEDS: ceFAZolin 2 GM/D5W 50 ML 2 GM/50 ML BAG IVPB (07:56)
[2024-03-13] MEDS: SENNA/DOCUSATE SODIUM TABLET 2 TAB PO ×2 (07:56→17:29)
[2024-03-13] MEDS: CELECOXIB 200 MG CAPSULE PO (07:56)
--- NOTE | 2024-03-13 08:01 | PM.IMPN ---
Progress Note: A&P Assessment and Plan (1) Trimalleolar fracture of right ankle: Code(s): S82.851A - Displaced trimalleolar fracture of right lower leg, initial encounter for closed fracture Status: Acute Assessment and Plan: Patient reports a mechanical fall that resulted in a displaced acute probable trimalleolar fractures with significant derangement of the ankle mortise. Denies LOC and head trauma. - Ankle XR: displaced acute probable trimalleolar fractures with significant derangement of the ankle mortise. - Ankle XR: s/p cast placement - s/p ORIF bimalleolar components on 03/[address] Francis - PT/OT per ortho - DVT ppx per ortho - Care coordination following, patient will need placement (2) Migraine without aura, intractable, without status migrainosus: Code(s): G43.019 - Migraine without aura, intractable, without status migrainosus Status: Acute Assessment and Plan: Patient has long history of atypical migraine with neurological symptoms including slurred speech, weakness, and muscle spasms. She notes that she stopped all medications other than iron approximately 3 weeks ago. She has improvement with supplemental o2, hot/cold therapy and ibuprofen per her report. - PCP following, referral made to neurology at last appointment (3) Iron deficiency: Code(s): E61.1 - Iron deficiency Status: Acute Assessment and Plan: Chronic, continue iron supplementation. No signs of active bleeding. - Monitor with daily labs Time Spent With Patient Time with patient: 25 - 35 minutes Subjective Date/time seen: 03/13/24 08:01 Interval history: 68 year old female with past medical history of iron deficiency anemia and migraines presents to the hospital after a mechanical fall resulting in a displaced acute probable trimalleolar fractures with significant derangement of the ankle mortise. Patient is pleasant sitting up on the side of the bed eating breakfast. She states that the pain is not well controlled on current regimen. Patient is not wanting to take muscle relaxers. Will start her on scheduled Tylenol at this time. Patient continues to work with PT/OT who are recommending placement. Care coordination following. Review of Systems Review of Systems: All systems reviewed & are unremarkable except as noted in HPI and below Exam Narrative: AF HR 90 RR 18 SpO2 93 BP 125/94 General: female in no acute respiratory distress who is nontoxic appearing, lying semi recumbent in bed. HEENT: Normocephalic. Atraumatic. Extraocular movement intact. Sclera clear and anicteric. No facial asymmetry. Chest: Lungs are clear to auscultation bilaterally. No wheezes or crackles. CV: Heart was regular rate and rhythm. S1-S2. No murmurs, gallops, or rubs. Abd: Abdomen was soft. Nontender. Nondistended. Positive bowel sounds. No organomegaly or masses. Ext: RLE in walking boot. Sensation and movement of the toes intact. Neuro: Patient is alert and oriented x4. Cranial nerves 2-12 are intact. Speech is clear. Psych: Normal mood and affect. Patient is pleasant and cooperative. Objective Data Vital Signs Vital Signs: Vital Signs - 24 hr 03/12/24 09:57 03/12/24 10:10 03/12/24 10:25 Temperature 97.3 F L Pulse Rate 89 84 89 Respiratory Rate 18 19 18 Blood Pressure 107/67 130/97 H 137/76 Pulse Oximetry 98 95 99 Oxygen Delivery Simple Face Mask Simple Face Mask Simple Face Mask Oxygen Flow Rate 8 8 10 Fraction of Inspired Oxygen 03/12/24 10:40 03/12/24 10:55 03/12/24 11:10 Temperature Pulse Rate 88 77 72 Respiratory Rate 18 16 18 Blood Pressure 136/81 120/97 H 131/71 Pulse Oximetry 94 98 96 Oxygen Delivery Nasal Cannula Nasal Cannula Nasal Cannula Oxygen Flow Rate 2 2 2 Fraction of Inspired Oxygen 03/12/24 11:25 03/12/24 11:40 03/12/24 11:55 Temperature Pulse Rate 73 63 69 Respiratory Rate 16 18 12 Blood Pressure 150/83 H 140/64 130/78 Pulse Oximet
--- NOTE | 2024-03-13 09:04 | PHAR ---
Pharmacy is unable to verify patient's home med of ferrous gluconate due to no markings on tab.
[2024-03-13] MEDS: FLUTICASONE PROPIONATE 0.05% NA SPR 16 GM BTL (*BKC) 2 SPRAY NASAL (09:35)
[2024-03-13 09:51] LABS: Basophils Percent Auto 0.1 % (0.2-1.2); Eosinophils Percent Auto 0.3 % (0-4.4); Hematocrit 33.4 % (37.0-47.0); Hemoglobin 9.8 g/dL (12.0-15.0); Immature Granulocyte Absolute 0.02 K/mm3 (0.00-0.031); Immature Granulocyte Percent A 0.3 % (0-0.5); Lymphocytes Absolute Auto 0.76 K/mm3 (0.9-3.2); Lymphocytes Percent Auto 10.3 % (18.3-44.2); Mean Corpuscular HGB Conc 29.3 g/dl (32-36); Mean Corpuscular Hemoglobin 25.3 pg (26-34); Mean Corpuscular Volume 86.3 fl (80-100); Mean Platelet Volume 11.7 fl (7.4-10.4); Monocytes Absolute Auto 0.8 K/mm3 (0.1-0.6); Monocytes Percent Auto 10.8 % (2.6-8.5); Neutrophils Absolute Auto 5.8 K/mm3 (1.3-6.7); Neutrophils Percent Auto 78.2 % (45.5-73.1); Platelet Count Result 297 k/mm3 (150-375); Red Blood Count 3.87 M/mm3 (4.2-5.4); White Blood Count 7.4 K/mm3 (4.5-10.0)
[2024-03-13 09:59] LABS: Alanine Aminotransferase 26 U/L (6-35); Albumin Level 3.9 g/dL (3.5-5.1); Alkaline Phosphatase 101 U/L (38-126); Anion Gap 11 mmol/L (4-12); Aspartate Amino Transferase 36 U/L (14-36); Bilirubin,Total 0.4 mg/dL (0.2-1.3); Blood Urea Nitrogen 12 mg/dL (7-17); Calcium 9.7 mg/dL (8.4-10.2); Carbon Dioxide 23 mmol/L (22-30); Chloride 102 mmol/L (98-107); Estimated CRCL calculation 103 ml/min; Estimated Glomerular Filt Rate > 60; Glucose 104 mg/dL (65-110); Potassium 4.6 mmol/L (3.4-5.0); Sodium 136 mmol/L (137-145)
[2024-03-13 10:12] LABS: Anisocytosis 1+; Hypochromasia 1+; Platelet Estimate Adequate (Adequate); Tear Drop Cells 1+
[2024-03-13 10:13] LABS: Schistocytes None Seen
[2024-03-13] MEDS: LORATADINE 10 MG TABLET PO (10:48)
[2024-03-13] MEDS: HYDROmorphone HCL INJ (*CRX) 1 MG/ML SYR 0.5 MG IV PUSH (12:11)
--- NOTE | 2024-03-13 14:02 | P.PNAN_ITS ---
Anes - Prog Note Post-Op Date/Time: 03/13/24 14:02 Cardiovascular status: normal Respiratory status: normal Airway patency: baseline Mental status: baseline Post-Op hydration status: normal Vital Signs: Last Vital Signs Temp 36.2 C L 03/13/24 12:00 Pulse 90 03/13/24 12:00 Resp 18 03/13/24 12:00 BP 125/94 H 03/13/24 12:00 Pulse Ox 93 03/13/24 12:00 O2 Del Method Room Air 03/13/24 09:40 O2 Flow Rate 1 03/13/24 08:23 FiO2 21 03/13/24 08:00 Pain Score (VAS): 3 I/O: Intake & Output 03/12/24 03/13/24 03/13/24 23:59 07:59 15:59 Intake Total 100 500 120 Output Total 700 1100 Balance -600 -600 120 Laboratory Tests 03/13/24 09:16 03/13/24 08:25 03/12/24 03/13/24 03/13/24 19:30 08:25 09:16 WBC 7.4 RBC 3.87 L Hgb 9.8 L Hct 33.4 L MCV 86.3 MCH 25.3 L MCHC 29.3 L RDW 17.0 H Plt Count 297 MPV 11.7 H Immature Gran % (Auto) 0.3 Neut % (Auto) 78.2 H Lymph % (Auto) 10.3 L [place] % (Auto) 10.8 H Eos % (Auto) 0.3 Baso % (Auto) 0.1 L Lymph # (Auto) 0.76 L [place] # (Auto) 0.8 H Eos # (Auto) 0.0 Baso # (Auto) 0.0 Abs Immat Gran (auto) 0.02 Absolute Neuts (auto) 5.8 Absolute Nucleated RBC 0.000 Nucleated RBC % 0.0 Platelet Estimate Adequate Hypochromasia 1+ Anisocytosis 1+ Tear Drop Cells 1+ Schistocytes None seen Sodium 136 L Potassium 4.6 Chloride 102 Carbon Dioxide 23 Anion Gap 11 BUN 12 Creatinine 0.60 L Estim Creat Clear Calc 103 Estimated GFR > 60 Glucose 104 POC Capillary Glucose 143 H Calcium 9.7 Total Bilirubin 0.4 AST 36 ALT 26 Alkaline Phosphatase 101 Total Protein 6.0 L Albumin 3.9 Post-procedural complaints: none Patient Feedback: Patient satisfied with anesthetic care.
[2024-03-13] MEDS: FAMOTIDINE 20 MG TABLET PO (21:35)
[2024-03-14] MEDS: HYDROcodone/acetaminophen (*CRX) 5-325 MG TABLET 2 TAB PO ×4 (01:09→13:27)
[2024-03-14] MEDS: ACETAMINOPHEN 325 MG TABLET 650 MG PO (01:09)
[2024-03-14 06:00] VITALS: BP 154/75; PULSE 86; RESP 18; TEMP 36.4; O2SAT 94
[2024-03-14 06:12] LABS: Basophils Percent Auto 0.7 % (0.2-1.2); Eosinophils Absolute Auto 0.2 K/mm3 (0-0.3); Eosinophils Percent Auto 2.9 % (0-4.4); Hematocrit 35.4 % (37.0-47.0); Hemoglobin 10.4 g/dL (12.0-15.0); Immature Granulocyte Absolute 0.03 K/mm3 (0.00-0.031); Immature Granulocyte Percent A 0.5 % (0-0.5); Lymphocytes Absolute Auto 0.97 K/mm3 (0.9-3.2); Lymphocytes Percent Auto 16.8 % (18.3-44.2); Mean Corpuscular HGB Conc 29.4 g/dl (32-36); Mean Corpuscular Hemoglobin 25.8 pg (26-34); Mean Corpuscular Volume 87.8 fl (80-100); Mean Platelet Volume 11.1 fl (7.4-10.4); Monocytes Absolute Auto 0.6 K/mm3 (0.1-0.6); Monocytes Percent Auto 9.5 % (2.6-8.5); Neutrophils Percent Auto 69.6 % (45.5-73.1); Platelet Count Result 281 k/mm3 (150-375); Red Blood Count 4.03 M/mm3 (4.2-5.4); Red Cell Distribution Width 17.2 % (11.5-14.5); White Blood Count 5.8 K/mm3 (4.5-10.0)
[2024-03-14 06:20] LABS: Alanine Aminotransferase 26 U/L (6-35); Albumin Level 4.2 g/dL (3.5-5.1); Alkaline Phosphatase 106 U/L (38-126); Anion Gap 11 mmol/L (4-12); Aspartate Amino Transferase 37 U/L (14-36); Bilirubin,Total 0.5 mg/dL (0.2-1.3); Blood Urea Nitrogen 15 mg/dL (7-17); Calcium 9.6 mg/dL (8.4-10.2); Carbon Dioxide 25 mmol/L (22-30); Chloride 98 mmol/L (98-107); Estimated CRCL calculation 88 ml/min; Estimated Glomerular Filt Rate > 60; Glucose 103 mg/dL (65-110); Potassium 4.1 mmol/L (3.4-5.0); Sodium 134 mmol/L (137-145)
[2024-03-14 06:30] LABS: Anisocytosis 1+; Hypochromasia 1+; Ovalocytes 1+; Platelet Estimate Adequate (Adequate); Schistocytes None Seen
[2024-03-14] MEDS: polyethylene glycoL 3350 17 GM POWD.PACK PO (08:14)
[2024-03-14] MEDS: SENNA/DOCUSATE SODIUM TABLET 2 TAB PO (08:14)
[2024-03-14] MEDS: LORATADINE 10 MG TABLET PO (08:15)
[2024-03-14] MEDS: CELECOXIB 200 MG CAPSULE PO (08:15)
[2024-03-14] MEDS: FLUTICASONE PROPIONATE 0.05% NA SPR 16 GM BTL (*BKC) 2 SPRAY NASAL (08:17)
[2024-03-14] MEDS: IBUPROFEN 600 MG TABLET PO (08:26)
--- NOTE | 2024-03-14 13:07 | PM.DS ---
DS: Admitting Diagnosis Discharge Date 03/14/24 Admitting Diagnosis Trimalleolar fracture of right ankle Migraine without aura, intractable, without status migrainosus Iron deficiency Anxiety DS: Discharge Diagnosis Discharge Diagnosis (1) Trimalleolar fracture of right ankle: Code(s): S82.851A - Displaced trimalleolar fracture of right lower leg, initial encounter for closed fracture Status: Acute (2) Migraine without aura, intractable, without status migrainosus: Code(s): G43.019 - Migraine without aura, intractable, without status migrainosus Status: Acute (3) Iron deficiency: Code(s): E61.1 - Iron deficiency Status: Acute (4) Anxiety: Code(s): F41.9 - Anxiety disorder, unspecified Status: Acute DS: Summary Hospital Course Reason for hospitalization: Trimalleolar fracture of right ankle Migraine without aura, intractable, without status migrainosus Iron deficiency Anxiety Hospital Course: 68 year old female with past medical history of iron deficiency anemia and migraines presents to the hospital after a mechanical fall where she slipped on the floor. She denied hitting her head and loss of consciousness. An xray of the ankle was obtained and showed displaced acute probable trimalleolar fractures with significant derangement of the ankle mortise. She had a cast placed and underwent ORIF bimalleolar components on 03/[address] Francis. Patient continued to work with PT/OT. She remains non weight bearing per ortho at time of discharge. Patients pain was well controlled on the current pain regimen. During admission patient would have intermittent migraines. Patient has long history of atypical migraine with neurological symptoms including slurred speech, weakness, and muscle spasms. She notes that she stopped all medications other than iron approximately 3 weeks ago. She has improvement of migraines with supplemental o2, hot/cold therapy and ibuprofen per her report. She and her sister state they discussed this with her PCP prior. Throughout admission patient would have intermittent muscle spasms and worsening slurred speech that would spontaneously clear. Possible that there is underlying conversion vs psychosomatic disorder related to patients anxiety. Patient had a jarvis catheter placed during admission for retention. She will undergo a voiding trial on arrival to [facility]. KO aware. Prior to discharge patient denied chest pain, shortness of breath, nausea/vomiting and changes in bladder. Patient discharged in a stable condition to [facility]. She is to follow up with Dr. Francis in 2 weeks and her PCP in 1-2 weeks. Status at Discharge Functional status at discharge: uses cane/walker Time Spent with Patient Time attestation: Total time spent providing and/or coordinating discharge services: Time spent: Greater than 30 minutes Exam Narrative: AF HR 81 RR 16 SpO2 96 BP 138/79 General: female in no acute respiratory distress who is nontoxic appearing, lying semi recumbent in bed. HEENT: No facial asymmetry. Chest: Lungs are clear to auscultation bilaterally. No wheezes or crackles. CV: Heart was regular rate and rhythm. S1-S2. No murmurs, gallops, or rubs. Abd: Abdomen was soft. Nontender. Nondistended. Positive bowel sounds. No organomegaly or masses. Ext: RLE in walking boot. Sensation and movement of the toes intact. DP 2+. Neuro: Patient is alert and oriented x4. Cranial nerves 2-12 are intact. Speech is clear. Stutter. Psych: Normal mood and affect. Patient is pleasant and cooperative. DS: Data Data Completed and Pending Completed studies during hospitalization: Ankle XR Ankle XR Intraoperative XR Labs on day of discharge: Labs from last 24 hours 03/14/24 05:51 WBC 5.8 RBC 4.03 L Hgb 10.4 L Hct 35.4 L MCV 87.8 MCH 25.8 L MCHC 29.4 L RDW 17.2 H Plt Count 281 MPV 11.1 H Immature Gran % (Auto) 0.5 Neut % (Auto) 69.6 Lymph % (Auto) 16.8 L [place] % (
[2024-03-14 14:00] VITALS: BP 138/79; PULSE 81; RESP 16; TEMP 36.5; O2SAT 96
--- NOTE | 2024-03-14 15:41 | PC.NURSE ---
Pt requested pain medication approximately 1300. PT rated pain 8. This RN pulled two tablets out for the appropriate medication, but unintentionally pulled it under the 1 tab order in the pyxis. Two tablets were scanned and given appropriately. Charge and another RN discovered the resulting discrepancy in the back pyxis. This RN was told by pharmacy to pull one norco by pyxis, but to leave it in the drawer. This will create a future discrepancy but get the count correct again. marquez Daniels RN aware.
== END 2024-03-14 15:15 | DRG 494 ==
LOC: ANHED 08:38 → ANH3MEDSUR 09:28
PROVIDERS: Orthopaedic Surgery; Admitting Provider Family Medicine; Emergency Provider Preventive Medicine Aerospace Medicine; PCP Family Medicine; Visit Provider Student in an Organized Health Care Education/Training Program
PROC: 0QSG04Z Reposition Right Tibia with Internal Fixation Device, Open Approach (ICD-10-PCS; principal; 2024-03-12 08:30)
DX: S82.851A Displaced trimalleolar fracture of right lower leg, initial encounter for closed fracture (principal); I10 Essential (primary) hypertension; D50.9 Iron deficiency anemia, unspecified; G43.019 Migraine without aura, intractable, without status migrainosus; W18.30XA Fall on same level, unspecified, initial encounter
CPT/HCPCS: 27818; 36415; 73610; 80048; 80053; 82948; 83735; 85025; 85610; 96374; 96375; 97110; 97161; 97166; 97530; 97535; 99199; 99285; A9270; C1713; C1769; G0378; J0690; J1100; J1170; J2250; J2405; J2704; J7030; J7120; J7121; L2116

== ENCOUNTER 2024-03-27 15:25 | Inpatient (IN) | payer MEDICARE, SELFPAY ==
[2024-03-27] VITALS (15 sets, daily range): BP systolic 118–242; BP diastolic 66–134; PULSE 73–99; RESP 17–98; TEMP 36.3–36.5; O2SAT 92–99; BMI 43.0
--- NOTE | ~2024-03-27 | CT_ITS ---
EXAMINATION: 1. CT cervical spine wo con 2. CT thoracic lumbar wo con DATE: 03/31/2024 14:43 INDICATION: Neuropathy. TECHNIQUE: Computed tomography (CT) of the cervical, thoracic, and lumbar spine was performed without intravenous contrast. Automated exposure control and iterative reconstruction technique were employe d. The dose-length product was 558.20 mGy-cm. COMPARISON: Cervical spine radiographs 01/09/2024, chest CT 08/12/2014 FINDINGS: CT CERVICAL SPINE: There is 6 degrees levocurvature of cervical spine. There are widespread lytic les ions of bone. There is a pathologic burst fracture of C7. There is severely decreased disc height at C5-C6 and moderately decreased disc height at C6-C7. The following disc levels are specifically discu ssed: C2-C3: There is mild right uncovertebral joint osteoarthritis. There is severe right and moderate lef t facet joint osteoarthritis. There is mild right neural foraminal stenosis. There is no central scotty l stenosis. C3-C4: There is mild bilateral uncovertebral joint osteoarthritis. There is no facet joint osteoarthr itis. There is no neural foraminal stenosis. There is no central canal stenosis. C4-C5: There is mild bilateral uncovertebral joint osteoarthritis. There is mild left facet joint ost eoarthritis. There is mild left neural foraminal stenosis. There is no central canal stenosis. C5-C6: There is severe right and moderate left uncovertebral joint osteoarthritis. There is mild bila teral facet joint osteoarthritis. There is mild bilateral neural foraminal stenosis. There is mild ce ntral canal stenosis. C6-C7: There is severe bilateral uncovertebral joint osteoarthritis. There is moderate bilateral face t joint osteoarthritis. There is mild bilateral neural foraminal stenosis. There is moderate central canal stenosis. C7-T1: There is mild bilateral uncovertebral joint hypertrophy. There is severe bilateral facet joint osteoarthritis. There is severe right and moderate left neural foraminal stenosis. There is moderate central canal stenosis. CT THORACIC SPINE: There is a large sliding hiatal hernia. There is a small left pleural effusion. Th ere is mild atelectasis bilaterally. A calcified left lung nodule and calcified left hilar lymph node s are consistent with old granulomatous disease. There is 7 degrees dextrocurvature of cervical spine . There is kyphosis of upper thoracic spine. There is widespread lytic lesions of bone. There is scle rosis in T4 vertebral body. There are pathologic burst fractures of T1 and T2. There is mild chronic anterior wedging of T7, T8, T11, and T12 vertebral bodies. There is mild to moderately decreased disc height at most levels. There is multilevel severe facet joint osteoarthritis. There is multilevel mi ld neural foraminal stenosis bilaterally. On the right, there is moderate neural foraminal stenosis a t T1-T2, T3-T4, and T4-T5. On the left, there is moderate neural foraminal stenosis at T1-T2, T2-T3, T3-T4, and T4-T5 and severe neural foraminal stenosis at T5-T6. There is mild central canal stenosis at T1. CT LUMBAR SPINE: There is 9 degrees levocurvature of lumbar spine. There are widespread lytic and sc lerotic lesions of bone. Vertebral body heights are normal. There is moderately decreased disc height at L1-L2 and L2-L3, mildly decreased disc height at L3-L4, moderately decreased disc height at L4-L5 , and severely decreased disc height at L5-S1. The following disc levels are specifically discussed: L1-L2: The disc is bulging. There is moderate bilateral facet joint osteoarthritis. There is mild rig ht and moderate left neural foraminal stenosis. There is mild central canal stenosis. L2-L3: The disc is bulging. There is moderate bilateral facet joint osteoarthritis. There is mild amaya ateral neural foraminal stenosis. There is mild central canal stenosis. L3-L4: The disc is bulging. There is moderate bilateral
--- NOTE | ~2024-03-27 | XR_ITS ---
XR ankle RT min 3V 03/29/2024 08:29 Indication: Status post ORIF right ankle fractures Procedure: 3 views right ankle Comparison: 03/11/2024 Findings: Interval reduction of medial and lateral malleolar fractures. Lateral malleolar fracture tr ansfixed by side plate and screws and is in anatomic alignment. Medial malleolar fracture transfixed by single lag screw and is in anatomic alignment. There is a minimally displaced posterior malleolar fracture. Impression: 1: Status post internal fixation of bimalleolar fractures. Reviewed, dictated and finalized at location B. Impression: 1: Status post internal fixation of bimalleolar fractures.
--- NOTE | ~2024-03-27 | XR_ITS ---
EXAMINATION: XR chest 1V portable DATE: 03/28/2024 04:40 INDICATION: Hypoxia TECHNIQUE: frontal view of the chest was obtained. COMPARISON: Chest CT dated 03/27/2024 FINDINGS: Large amount of gas is seen within a large hiatal hernia with likely organoaxial volvulus. There is c ompressive atelectasis along the adjacent medial margin of the left and right lower lungs. No other a irspace opacities, pulmonary edema, pleural effusion or pneumothorax. Heart size is within normal hall its conifer AP technique. IMPRESSION: 1. Compressive atelectasis in the bilateral lower lobes along side a large hiatal hernia with organoa xial volvulus. This appears unchanged tiny for differences in technique. Reviewed, dictated and finalized at location A. IMPRESSION: 1. Compressive atelectasis in the bilateral lower lobes along side a large hiat al hernia with organoaxial volvulus. This appears unchanged tiny for difference s in technique.
--- NOTE | ~2024-03-27 | CT_ITS ---
EXAMINATION: CTA chest PE protocol DATE: 03/27/2024 19:43 INDICATION: JUDY, hypoxia, recent surgery TECHNIQUE: Computed tomography angiography (CTA) of the chest was performed with 100 mL Omnipaque-350 intravenous contrast timed to evaluate the pulmonary arteries. Coronal maximum intensity projection 3D-reconstructions were created by the technologist. The dose-length product (DLP) was 1169.98 mGy-cm . Automated exposure control and iterative reconstruction technique were employed. COMPARISON: None. FINDINGS: Lung parenchyma and airways: Small focus of right posterior upper lobe and superior segment lower lob e centrilobular nodular and acinar opacities. Subsegmental left medial basilar atelectasis Pleura: Trace left effusion. Thoracic inlet, axillae and chest wall: 3.7 cm peripherally enhancing fluid collection in the left br east. Thoracic aorta: No significant dilation. No dissection. Mediastinum: Large hiatal hernia containing the entire stomach. Heart and pericardium: Normal. Coronary artery calcifications: Absent. Upper abdomen: Mild gallbladder distention. Bones: No acute osseous finding. Pulmonary arteries: Study quality: Adequate. No pulmonary emboli detected. IMPRESSION: No CT evidence of acute pulmonary embolus. Focal right posterior upper lobe and superior right lower lobe opacities may represent atypical infec tion or aspiration. Large hiatal hernia containing the entire stomach. Mild gallbladder hydrops, probably secondary to fasting. Consider obstruction if biliary labs are abn ormal. Presumed postsurgical change in the left breast Reviewed, dictated and finalized at location K. IMPRESSION: No CT evidence of acute pulmonary embolus. Focal right posterior upper lobe and superior right lower lobe opacities may re present atypical infection or aspiration. Large hiatal hernia containing the entire stomach. Mild gallbladder hydrops, probably secondary to fasting. Consider obstruction i f biliary labs are abnormal. Presumed postsurgical change in the left breast
--- NOTE | ~2024-03-27 | XR_ITS ---
XR chest 1V portable 03/27/2024 17:11 Indication: Dyspnea. Cough. Procedure: AP portable chest Comparison: Comparison to multiple prior studies sequentially, with oldest reviewed study dated 01/2014. Findings: Large hiatal hernia. Cardiomegaly. No focal air space disease, pulmonary edema, pleural eff usion or suspected pneumothorax. Impression: 1: No acute cardiopulmonary disease. 2: Large hiatal hernia. Reviewed, dictated and finalized at location B. Impression: 1: No acute cardiopulmonary disease. 2: Large hiatal hernia.
--- NOTE | 2024-03-27 16:21 | ECG_ITS ---
Test Date: 2024-03-27 18:47:23 Measurements Intervals [place] Rate: 78 P: 12 RI: 120 QRS: 82 QRSD: 102 T: 10 QT: 403 QTc: 460 Interpretive Statements SINUS RHYTHM INCOMPLETE RIGHT BUNDLE BRANCH BLOCK BORDERLINE T WAVE ABNORMALITY- INFERIOR LEADS BORDERLINE ECG No previous ECG available for comparison Electronically Signed On 03-27-2024 20:24:31 CDT by Jose Alfredo Durand D.O.
[2024-03-27] MEDS: IPRATROPIUM 0.5 MG/ALBUTEROL SULFATE 2.5 MG AMPUL.NEB 3 ML INHALATION ×3 (16:35→16:57)
[2024-03-27] MEDS: ALBUTEROL SULFATE NEB 2.5 MG/3 ML INH INHALATION ×3 (16:35→16:57)
[2024-03-27 16:54] LABS: Alveolar/Arterial O2 Gradient 107.5 mmHg; Base Excess ABG -1.2 mEq/l (+/-2.0); Fractional Inspired Oxygen 48 %; HCO3 ABG 22.8 mEq/l (22.0-26.0); Modified Allen's Test Pass; Oxygen Content ABG 17.8 %vol (16.0-22.0); Oxygen Saturation ABG 99.4 % (95.0-100.0); Oxyhemoglobin 98.8 % THb (90.0-100.0); PCO2 ABG 35.8 mmHg (35.0-45.0); PO2 ABG 194.3 mmHg (80.0-100.0); PO2 FiO2 Ratio Arterial Blood 4.05 %; Site Drawn RIGHT RADIAL; Total Hemoglobin 12.5 g/dL (12.0-18.0); pH ABG 7.421 (7.350-7.450)
[2024-03-27 16:55] LABS: Device NASAL CANNULA
[2024-03-27] MEDS: MORPHINE SULFATE (*CRX) 4 MG/ML INJ IV PUSH ×2 (17:00→22:35)
[2024-03-27] MEDS: hydrALAZINE HCL 20 MG/ML VIAL 10 MG IV PUSH (17:00)
[2024-03-27 17:03] LABS: Basophils Percent Auto 0.4 % (0.2-1.2); Eosinophils Percent Auto 0.4 % (0-4.4); Hematocrit 36.6 % (37.0-47.0); Hemoglobin 11.6 g/dL (12.0-15.0); Immature Granulocyte Absolute 0.04 K/mm3 (0.00-0.031); Immature Granulocyte Percent A 0.5 % (0-0.5); Lymphocytes Absolute Auto 0.66 K/mm3 (0.9-3.2); Lymphocytes Percent Auto 8.4 % (18.3-44.2); Mean Corpuscular HGB Conc 31.7 g/dl (32-36); Mean Corpuscular Hemoglobin 25.4 pg (26-34); Mean Corpuscular Volume 80.3 fl (80-100); Mean Platelet Volume 10.9 fl (7.4-10.4); Monocytes Absolute Auto 0.6 K/mm3 (0.1-0.6); Monocytes Percent Auto 7.4 % (2.6-8.5); Neutrophils Absolute Auto 6.5 K/mm3 (1.3-6.7); Neutrophils Percent Auto 82.9 % (45.5-73.1); Platelet Count Result 366 k/mm3 (150-375); Red Blood Count 4.56 M/mm3 (4.2-5.4); Red Cell Distribution Width 16.3 % (11.5-14.5); White Blood Count 7.8 K/mm3 (4.5-10.0)
[2024-03-27 17:12] LABS: INR 1.2; Partial Thromboplastin Time 34.7 Seconds (22.3-36.8); Prothrombin Time 15.3 Seconds (11.1-14.7)
[2024-03-27 17:19] LABS: Alanine Aminotransferase 22 U/L (6-35); Albumin Level 4.2 g/dL (3.5-5.1); Alkaline Phosphatase 130 U/L (38-126); Anion Gap 11 mmol/L (4-12); Aspartate Amino Transferase 36 U/L (14-36); Bilirubin,Total 0.6 mg/dL (0.2-1.3); Blood Urea Nitrogen 18 mg/dL (7-17); Calcium 9.2 mg/dL (8.4-10.2); Carbon Dioxide 23 mmol/L (22-30); Chloride 90 mmol/L (98-107); Estimated Glomerular Filt Rate > 60; Glucose 133 mg/dL (65-110); Magnesium 1.6 mg/dL (1.6-2.3); Sodium 124 mmol/L (137-145)
[2024-03-27 17:31] LABS: NT Pro B Type Natriuretic Pept 792 pg/mL (19.9-100); Troponin I < 0.012 ng/mL (0.000-0.034)
--- NOTE | 2024-03-27 20:59 | PC.NURSE ---
took multiple attempts to draw blood cultures for this patient. once blood cultures sent to lab antibiotics given.
[2024-03-27 21:01] LABS: Lactic Acid Reflex 2.4 mmol/L (0.7-2.0)
[2024-03-27 21:04] LABS: Anion Gap 14 mmol/L (4-12); Blood Urea Nitrogen 18 mg/dL (7-17); CRP 4.4 mg/dL (<1.0); Calcium 9.2 mg/dL (8.4-10.2); Carbon Dioxide 21 mmol/L (22-30); Chloride 90 mmol/L (98-107); Estimated Glomerular Filt Rate > 60; Glucose 139 mg/dL (65-110); Potassium 3.5 mmol/L (3.4-5.0); Sodium 125 mmol/L (137-145)
[2024-03-27] MEDS: SODIUM CHLORIDE 0.9% IV 1,000 ML 999 ML IV CONT (21:06)
[2024-03-27] MEDS: LORazepam (*CRX) 1 MG TABLET PO (21:14)
[2024-03-27 21:15] LABS: Appearance Urine Cloudy (Clear); Bacteria Urine 4+ /hpf; Bilirubin Urine Negative (Negative); Blood Urine 3+ (Negative); Color Urine Yellow (Yellow); Glucose Urine UA Negative (Negative); Ketones Urine Trace mg/dL (Negative); Leukocyte Esterase Ur 1+ LEU/UL (Negative); Need Manual Microscopic Reviewed; Nitrate Urine Positive (Negative); Protein Urine 1+ mg/dL (Negative); RBC Urine >100 /hpf (0-2); Specific Grav Ur > 1.045 (1.001-1.035); Squamous Epithelial Cell Urine None Seen /hpf (Few); Urobilinogen Urine 0.2 mg/dL (<2.0); WBC Urine >100 /hpf (0-3); pH Urine 6.5 (5.0-9.0)
[2024-03-27 21:17] LABS: Add Urine Microscopic? YES
--- NOTE | 2024-03-27 21:31 | ED.SOB ---
HPI - SOB/Dyspnea General Chief Complaint: Shortness of Breath/Dyspnea Stated Complaint: low O2 sats Time Seen by Provider: 03/27/24 15:54 History of Present Illness HPI Narrative: This is a 69-year-old female with a past medical history including breast cancer, recent right-sided trimalleolar fracture status post repair. She was recently discharged from her skilled rehab center to the acute care center earlier today. She states after she was discharged to Center she started developing sudden onset working breathing, dyspnea, hypoxia. She was saturating in the low 90s and was provided nasal cannula support which improved. On my initial evaluation patient she is having significant conversational dyspnea and really working to breathe. She states she is having chest tightness sensation and feeling very wheezy. No known history of COPD or asthma according to herself. She states she is having generalized pain especially in her right lower extremity where her recent procedure was. She appears very anxious. Denies any chest pain, nausea, vomiting, back pain, abdominal pain. She is having a productive cough without any fevers or chills according to herself. Cough has been going on for several days. She has never had any kind of respiratory distress like this in the past according to herself. No history of DVT or PE. She had recent duplex of the right lower extremity done without any findings yesterday. Related Data Home Medications Medication Instructions Recorded Confirmed ferrous gluconate 256 mg (28 mg 256 mg PO DAILY 03/12/24 03/28/24 iron) tablet cetirizine 10 mg tablet (Zyrtec) 10 mg PO DAILY PRN Allergy Symptoms 03/13/24 03/28/24 Allergies Allergy/AdvReac Type Severity Reaction Status Date / Time pentazocine Allergy Severe Confusion Verified 03/14/24 18:32 clindamycin Allergy Intermediate Itching Verified 03/14/24 18:32 trolamine salicylate Allergy Intermediate RASH OVER Verified 03/14/24 18:32 ALL BODY adhesive tape Allergy Mild Other Verified 03/14/24 18:32 latex Allergy Mild Itching Verified 03/14/24 18:32 levothyroxine Allergy Mild Rash Verified 03/14/24 18:32 bacitracin Allergy Unknown Unknown Verified 03/14/24 18:32 benzalkonium chloride Allergy Unknown Unknown Verified 03/14/24 18:32 epinephrine Allergy Unknown Unknown Verified 03/14/24 18:32 gramicidin D Allergy Unknown Unknown Verified 03/14/24 18:32 hydrocortisone Allergy Unknown Unknown Verified 03/14/24 18:32 lamotrigine Allergy Unknown Rash Verified 03/14/24 18:32 levofloxacin Allergy Unknown Skin Verified 03/14/24 18:32 Reaction morphine Allergy Unknown family hx Verified 03/14/24 18:32 neomycin Allergy Unknown Rash Verified 03/14/24 18:32 omeprazole Allergy Unknown Unknown Verified 03/14/24 18:32 Penicillins Allergy Unknown Unknown Verified 03/14/24 18:32 polymyxin B Allergy Unknown Unknown Verified 03/14/24 18:32 codeine AdvReac Unknown sick to Verified 03/14/24 18:32 stomach ethanolamine AdvReac Unknown vertigo Verified 03/14/24 18:32 nortriptyline AdvReac Unknown headaches Verified 03/14/24 18:32 worse Sulfa (Sulfonamide AdvReac Unknown sick to Verified 03/14/24 18:32 Antibiotics) stomach Review of Systems Review of Systems: Negative unless otherwise reviewed above [facility] Past Medical History Medical History Anxiety Ataxia Atypical migraine Bartonella infection Breast cancer has reached 5 years. off anastrozole Closed right trimalleolar fracture Iron deficiency anemia, unspecified Trapezius strain Surgical History Surgical History H/O: hysterectomy History of lumpectomy of left breast Family History Family History Father Family history of cardiovascular disease Diabetes mellitus Family history of malignant neoplasm Mother Cer
--- NOTE | 2024-03-27 21:32 | PM.IMHP ---
H&P: HPI History of Present Illness Date/Time: 03/27/24 21:32 Chief Complaint: sob Narrative: this 69-year-old female with past medical history significant for morbid obesity, anxiety, a typical migraine, breast CA, iron deficiency anemia. recent trimalleolar fracture of the right lower extremity patient was brought from [facility] after she was discharged from [place] [facility] was brought to emergency room due to shortness of breath. In emergency room patient placed on BiPAP. Patient has had generalize muscle aches and pains, spasms, fevers, chills, cough productive of copious amount of thick sputum byrd-white. Preliminary workup significant for chest x-ray with infiltrates. XR chest 1V portable 03/27/2024 17:11 Indication: Dyspnea. Cough. Procedure: AP portable chest Comparison: Comparison to multiple prior studies sequentially, with oldest reviewed study dated 08/07/2014. Findings: Large hiatal hernia. Cardiomegaly. No focal air space disease, pulmonary edema, pleural effusion or suspected pneumothorax. Impression: 1: No acute cardiopulmonary disease. 2: Large hiatal hernia. EXAMINATION: CTA chest PE protocol DATE: 03/27/2024 19:43 INDICATION: JUDY, hypoxia, recent surgery TECHNIQUE: Computed tomography angiography (CTA) of the chest was performed with 100 mL Omnipaque-350 intravenous contrast timed to evaluate the pulmonary arteries. Coronal maximum intensity projection 3D-reconstructions were created by the technologist. The dose-length product (DLP) was 1169.98 mGy-cm. Automated exposure control and iterative reconstruction technique were employed. COMPARISON: None. FINDINGS: Lung parenchyma and airways: Small focus of right posterior upper lobe and superior segment lower lobe centrilobular nodular and acinar opacities. Subsegmental left medial basilar atelectasis Pleura: Trace left effusion. Thoracic inlet, axillae and chest wall: 3.7 cm peripherally enhancing fluid collection in the left breast. Thoracic aorta: No significant dilation. No dissection. Mediastinum: Large hiatal hernia containing the entire stomach. Heart and pericardium: Normal. Coronary artery calcifications: Absent. Upper abdomen: Mild gallbladder distention. Bones: No acute osseous finding. Pulmonary arteries: Study quality: Adequate. No pulmonary emboli detected. IMPRESSION: No CT evidence of acute pulmonary embolus. Focal right posterior upper lobe and superior right lower lobe opacities may represent atypical infection or aspiration. Large hiatal hernia containing the entire stomach. Mild gallbladder hydrops, probably secondary to fasting. Consider obstruction if biliary labs are abnormal. Presumed postsurgical change in the left breast Review of Systems Review of Systems: sob, cough productive of thick sputum, rigors, chills, muscle spasms Constitutional: Constitutional: Reports chills, Reports fever(s), Reports malaise and Reports weakness PMFSH Past Medical History Medical History Anxiety Ataxia Atypical migraine Bartonella infection Breast cancer has reached 5 years. off anastrozole Closed right trimalleolar fracture Iron deficiency anemia, unspecified Trapezius strain Surgical History Surgical History H/O: hysterectomy History of lumpectomy of left breast Family History Family History Father Family history of cardiovascular disease Diabetes mellitus Family history of malignant neoplasm Mother Cerebrovascular accident Social History Social History Smoking status: Never smoker Alcohol intake: current Drinks per week: 0 Alcohol use details: half a beer once a month Substance use: antwan
[2024-03-27] MEDS: AZITHROMYCIN 500 MG/NS 250 ML 500 MG/250 ML BAG 250 MG IVPB (21:33)
--- NOTE | 2024-03-27 22:47 | PC.NURSE ---
This patient, Vanessa Goncalves, was admitted to IMU Room 202-01. Patient/family oriented to hospital policies and general routines including ID bracelet, bed and alarms, visiting hours, pain management, procedures, bathroom and other care routines, personal items, smoking policy, room service/diet, and visiting hours. Information on how to activate the Rapid Response Team has been discussed. Patient/Family are encouraged to report perceived risks to care and to ask questions if they do not understand what they are told or what they should do.
[2024-03-27 23:46] LABS: Reflex Lactic Acid Yes or No Add Lactic
[2024-03-28] VITALS (35 sets, daily range): BP systolic 145–185; BP diastolic 66–114; PULSE 67–99; RESP 18–28; TEMP 36.1–37; O2SAT 94–100
[2024-03-28 00:57] LABS: Lactic Acid 2.2 mmol/L (0.7-2.0)
[2024-03-28] MEDS: BACLOFEN 10 MG TABLET PO ×2 (02:31→20:02)
[2024-03-28] MEDS: HYDROcodone/acetaminophen (*CRX) 5-325 MG TABLET 1 TAB PO ×4 (02:36→18:07)
--- NOTE | 2024-03-28 03:22 | PC.NURSE ---
Patient extremely anxious and states she cannot wear bipap, restless, and tachypneic. Encouraged to take slow, deep breathes. MD notified and 1 mg ativan IVP order received x1.
[2024-03-28] MEDS: LORazepam INJ (*CRX) 2 MG/ML VIAL 1 MG IV PUSH (03:33)
[2024-03-28] MEDS: IPRATROPIUM 0.5 MG/ALBUTEROL SULFATE 2.5 MG AMPUL.NEB 3 ML INHALATION ×4 (04:40→19:55)
[2024-03-28] MEDS: SODIUM CHLORIDE 3% 100 ML IV CONT (05:22)
[2024-03-28 07:29] LABS: Anion Gap 11 mmol/L (4-12); Blood Urea Nitrogen 19 mg/dL (7-17); Carbon Dioxide 22 mmol/L (22-30); Chloride 94 mmol/L (98-107); Estimated CRCL calculation 103 ml/min; Estimated Glomerular Filt Rate > 60; Glucose 103 mg/dL (65-110); Potassium 4.2 mmol/L (3.4-5.0); Sodium 127 mmol/L (137-145)
[2024-03-28] MEDS: FAMOTIDINE 20 MG TABLET PO ×2 (08:13→22:15)
[2024-03-28] MEDS: METOPROLOL TARTRATE 50 MG TAB PO ×2 (08:13→22:16)
[2024-03-28] MEDS: ASPIRIN 81 MG ENTERIC TABLET PO (08:13)
[2024-03-28] MEDS: FERROUS GLUCONATE 324 MG TABLET PO (08:15)
[2024-03-28] MEDS: BACLOFEN 5 MG TABLET PO ×2 (08:15→16:03)
[2024-03-28] MEDS: FLUTICASONE PROPIONATE 0.05% NA SPR 16 GM BTL (*BKC) 2 SPRAY NASAL (08:15)
--- NOTE | 2024-03-28 10:16 | PM.IMPN ---
Progress Note: A&P Assessment and Plan (1) Respiratory failure: Code(s): J96.90 - Respiratory failure, unspecified, unspecified whether with hypoxia or hypercapnia Status: Acute (2) Pneumonia: Code(s): J18.9 - Pneumonia, unspecified organism Status: Acute (3) Essential (primary) hypertension: Code(s): I10 - Essential (primary) hypertension Status: Acute (4) Anxiety: Code(s): F41.9 - Anxiety disorder, unspecified Status: Acute (5) Trimalleolar fracture of right ankle: Code(s): S82.851A - Displaced trimalleolar fracture of right lower leg, initial encounter for closed fracture Status: Acute (6) Migraine without aura, intractable, without status migrainosus: Code(s): G43.019 - Migraine without aura, intractable, without status migrainosus Status: Acute (7) Diaphragmatic hernia with obstruction, without gangrene: Code(s): K44.0 - Diaphragmatic hernia with obstruction, without gangrene Status: Acute (8) Morbid obesity with BMI of 40.0-44.9, adult: Code(s): E66.01 - Morbid (severe) obesity due to excess calories; Z68.41 - Body mass index [BMI] 40.0-44.9, adult Status: Acute (9) Acute hyponatremia: Code(s): E87.1 - Hypo-osmolality and hyponatremia Status: Acute Plan This is a 69-year-old female presenting with acute respiratory distress. Patient has significant work of breathing, significant hypertension in the 200s and conversational dyspnea. This was all sudden onset after. Patient was recently discharged from her acute rehab center today to a long-term care facility prior to the onset of these symptoms. Patient was started on BiPAP upon arrival to the ER. She was actively wheezing on presentation. Laboratory evaluation showed hemoglobin 11 point a ptosis. ABG with showed 7.42/35/194/22. Urinalysis suggestive of UTI. Electrolyte panel showed sodium level of 124 decreased compared to previous levels. CT of the chest showed no PE but right upper and right lower lobe opacities for atypical infection versus a aspiration pneumonia. 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 Patient was started on antibiotic with ceftriaxone and azithromycin. Urine studies have been sent. BiPAP p.r.n.. Anxiety disorder home medication Recent trimalleolar fracture right ankle status post reduction follow-up with orthopedics as planned History of migraine Hypertension Iron deficiency DVT prophylaxis Lovenox Subjective Date/time seen: 03/28/24 10:16 Interval history: Feeling a bit better today. Transition to oxygen via nasal cannula this a.m.. Has some cough. Review of Systems Review of Systems: All systems reviewed & are unremarkable except as noted in HPI and below Exam Narrative: GENERAL: Awake and alert not in acute distress HEAD: [Normocephalic, atraumatic.] EYES: [PERRLA and EOMI.] ENT: Nares clear, no rhinorrhea or epistaxis. Mucous membranes moist. NECK: Supple. CHEST: Coarse breath sounds bilaterally Ki heard no respiratory distress HEART: [Regular rate and rhythm]. No murmur heard. [Normal peripheral pulses.] ABDOMEN: [Soft, nondistended], [nontender], [No rigidity or guarding] EXTREMITIES: Normal range of motion. Some edema in the right lower extremity just above the surgical boot SKIN: Warm, dry, no rash. NEURO: [No focal deficits]. Alert and oriented [x3.] PSYCH: [Normal mood and affect.] Objective Data Vital Signs Vital Signs: Vital Signs - 24 hr 03/27/24 15:29 03/27/24 16:10 03/27/24 16:35 Temperature 97.7 F Pulse Rate 77 73 Respiratory Rate 27 H 98 H Blood Pressure 194/95 H Pulse Oximetry 98 97 Oxygen Delivery Nasal Cannula Oxygen Flow Rate 5 5 03/27/24 16:57 03/27/24 19:15 03/27/24 21:15 Temperature Pulse Rate 78 99 88 Respiratory Rate 38 H 34 H 24 H Blood Pressure 162/82 H Pulse Oximetry 98 99 92 Oxygen Delivery BiPAP BiP
--- NOTE | 2024-03-28 14:58 | PHAR ---
HOME MED SENT TO PHARMACY FOR VERIFICATION. OPEN BOTTLE LABELED FERROUS GLUCONATE 28 MG IRON (256 MG FERROUS GLUCONATE) CONTAINING SPECKLED PALE GREEN ROUND TABLETS WITH NO MARKINGS. I CAN NOT POSITIVELY CONFIRM CONTENTS OF BOTTLE BUT ALSO HAVE NO REASON TO BELIEVE THEY ARE NOT ASS BOTTLE SAYS.
[2024-03-28] MEDS: HYDROcodone/acetaminophen (*CRX) 10-325 MG TABLET 1 TAB PO ×2 (16:03→22:17)
[2024-03-28] MEDS: SALINE 0.65% NAS SOLN 44 ML BTL 1 SPRAY NASAL ×2 (16:03→22:17)
[2024-03-28] MEDS: IBUPROFEN 600 MG TABLET PO (16:08)
[2024-03-28] MEDS: AZITHROMYCIN 500 MG/NS 250 ML 500 MG/250 ML BAG 250 MG IVPB (16:35)
[2024-03-28] MEDS: cefTRIAXone 2 GM/NS 100 ML 2 GM/100 ML BAG IVPB (18:07)
--- NOTE | 2024-03-28 18:33 | PHAR ---
PT'S HOME MED CETIRIZINE 10 MG VERIFIED BY PHARMACY. NOTE PT HAS 2 DIFFERENT TABLETS IN THE BOTTLE BUT THEY BOTH IDENTIFY CETIRIZINE 10 MG
[2024-03-29] VITALS (22 sets, daily range): BP systolic 147–163; BP diastolic 76–100; PULSE 66–80; RESP 16–22; TEMP 35.6–36.9; O2SAT 95–100; BMI 11.0
--- NOTE | 2024-03-29 00:05 | PC.NURSE ---
Patient anxious stating unable to wear bipap mask and requesting meds for anxiety. Dr. Walker contacted and order given for 1 mg ativan IVP x1.
[2024-03-29] MEDS: LORazepam INJ (*CRX) 2 MG/ML VIAL 1 MG IV PUSH (00:46)
[2024-03-29] MEDS: IBUPROFEN 600 MG TABLET PO (00:47)
[2024-03-29] MEDS: IPRATROPIUM 0.5 MG/ALBUTEROL SULFATE 2.5 MG AMPUL.NEB 3 ML INHALATION ×4 (02:15→20:37)
[2024-03-29] MEDS: HYDROcodone/acetaminophen (*CRX) 10-325 MG TABLET 1 TAB PO ×4 (03:54→20:20)
[2024-03-29 04:47] LABS: Basophils Percent Auto 0.5 % (0.2-1.2); Eosinophils Absolute Auto 0.1 K/mm3 (0-0.3); Hematocrit 36.4 % (37.0-47.0); Immature Granulocyte Absolute 0.04 K/mm3 (0.00-0.031); Immature Granulocyte Percent A 0.6 % (0-0.5); Lymphocytes Absolute Auto 0.68 K/mm3 (0.9-3.2); Mean Corpuscular HGB Conc 30.2 g/dl (32-36); Mean Corpuscular Hemoglobin 25.1 pg (26-34); Mean Corpuscular Volume 83.1 fl (80-100); Mean Platelet Volume 11.2 fl (7.4-10.4); Monocytes Absolute Auto 0.8 K/mm3 (0.1-0.6); Monocytes Percent Auto 12.8 % (2.6-8.5); Neutrophils Absolute Auto 4.6 K/mm3 (1.3-6.7); Neutrophils Percent Auto 74.1 % (45.5-73.1); Platelet Count Result 313 k/mm3 (150-375); Red Blood Count 4.38 M/mm3 (4.2-5.4); Red Cell Distribution Width 16.9 % (11.5-14.5); White Blood Count 6.2 K/mm3 (4.5-10.0)
[2024-03-29 05:11] LABS: Alanine Aminotransferase 27 U/L (6-35); Albumin Level 4.1 g/dL (3.5-5.1); Alkaline Phosphatase 123 U/L (38-126); Anion Gap 12 mmol/L (4-12); Aspartate Amino Transferase 40 U/L (14-36); Bilirubin,Total 0.3 mg/dL (0.2-1.3); Blood Urea Nitrogen 15 mg/dL (7-17); Calcium 9.4 mg/dL (8.4-10.2); Carbon Dioxide 23 mmol/L (22-30); Chloride 94 mmol/L (98-107); Estimated CRCL calculation 121 ml/min; Estimated Glomerular Filt Rate > 60; Glucose 90 mg/dL (65-110); Magnesium 1.9 mg/dL (1.6-2.3); Sodium 129 mmol/L (137-145)
--- NOTE | 2024-03-29 05:46 | PC.NURSE ---
Notified Dr. Walker of patient persistent dyspnea and wheezing following neb treatments. Order given for 40 lasix IVP x1.
[2024-03-29] MEDS: FUROSEMIDE INJ 40 MG/4 ML VIAL IV PUSH (06:06)
--- NOTE | 2024-03-29 06:58 | PM.CNOR ---
Assessment and Plan Assessment and plan (1) Morbid obesity with BMI of 40.0-44.9, adult: Code(s): E66.01 - Morbid (severe) obesity due to excess calories; Z68.41 - Body mass index [BMI] 40.0-44.9, adult Status: Acute (2) Trimalleolar fracture of right ankle: Code(s): S82.851A - Displaced trimalleolar fracture of right lower leg, initial encounter for closed fracture Status: Acute Assessment and Plan: Patient has a comminuted ankle fracture. This is exacerbated by morbid obesity. She underwent open reduction internal fixation. Did not show for follow-up. She is in the hospital now on I came to examine her. Her incision is clean was removed the racquel and steri-stripped. I would like to get an x-ray as well. Follow-up in a couple weeks when she does a hospital discussed. History of Present Illness HPI Consult date: 03/29/24 Chief complaint: Sepsis, PNA Review of Systems Musculoskeletal: Musculoskeletal: Reports myalgias, Reports arthralgias, Reports joint swelling and Reports stiffness PMFSH Past Medical History Medical History Anxiety Ataxia Atypical migraine Bartonella infection Breast cancer has reached 5 years. off anastrozole Closed right trimalleolar fracture Iron deficiency anemia, unspecified Trapezius strain Surgical History Surgical History H/O: hysterectomy History of lumpectomy of left breast Family History Family History Father Family history of cardiovascular disease Diabetes mellitus Family history of malignant neoplasm Mother Cerebrovascular accident Social History Social History Smoking status: Never smoker Alcohol intake: current Drinks per week: 0 Alcohol use details: half a beer once a month Substance use: never Substance use type: does not use Do You Feel Safe in your Home?: Yes Lack of Transportation: No Lack of Food: Never True Current Housing: I Have Housing Concerned About Future Housing: No Difficulty Paying Gas/Electric Bills: No Difficulty Paying for Meds: No Currently Unemployed: No Education: Master's Degree or Higher Difficulty w/ Childcare or Family Care: No Living arrangements: with family Spiritual care concerns: No Meds Home Medications and Allergies Home Medications Medication Instructions Recorded Confirmed Type ferrous gluconate 256 mg (28 mg 256 mg PO DAILY 03/12/24 03/28/24 History iron) tablet cetirizine 10 mg tablet (Zyrtec) 10 mg PO DAILY PRN Allergy Symptoms 03/13/24 03/28/24 History acetaminophen 325 mg tablet 650 mg PO Q6HR #60 tabs 03/14/24 03/28/24 Rx aspirin 81 mg capsule 81 mg PO DAILY #30 caps 03/14/24 03/28/24 Rx L.acidophilus-L.bulgar-B.bifid-S.thermoph 1 tab PO DAILY #0 tabs 03/26/24 03/28/24 Rx 1 billion cell-250 mg tablet (Cherry-Bid) baclofen 10 mg tablet 5 mg PO BID@0900,1500 #0 tabs 03/26/24 03/28/24 Rx baclofen 10 mg tablet 10 mg PO QPM@2000 #0 tabs 03/26/24 03/28/24 Rx famotidine 20 mg tablet 20 mg PO Q12HR #0 tabs 03/26/24 03/28/24 Rx fluticasone propionate 50 2 spray intranasal Q12HR #0 grams 03/26/24 03/28/24 Rx mcg/actuation nasal spray,suspension hydralazine 25 mg tablet 25 mg PO BID #0 tabs 03/26/24 03/28/24 Rx hydrocodone 5 mg-acetaminophen 325 1 tablet PO Q4H PRN Pain Rated 4-6 03/26/24 03/28/24 Rx mg tablet #12 tabs metoprolol tartrate 50 mg tablet 50 mg PO Q12HR #0 tabs 03/26/24 03/28/24 Rx polyethylene glycol 3350 17 gram 17 g PO QAM&HS PRN Constipation #0 03/26/24 03/28/24 Rx oral powder packet (Miralax) ea sennosides 8.6 mg tablet (Senokot) 8.6 mg PO BID PRN Constipation #0 03/26/24 03/28/24 Rx tabs sennosides 8.6 mg-docusate sodium 2 tab PO BID #0 tabs 03/26/24 03/28/24 Rx 50 mg tabl
[2024-03-29] MEDS: FAMOTIDINE 20 MG TABLET PO ×2 (08:15→20:19)
[2024-03-29] MEDS: ASPIRIN 81 MG ENTERIC TABLET PO (08:47)
[2024-03-29] MEDS: METOPROLOL TARTRATE 50 MG TAB PO ×2 (08:47→20:19)
[2024-03-29] MEDS: ENOXAPARIN 40 MG/0.4 ML SYRINGE SUB-Q (08:48)
[2024-03-29] MEDS: BACLOFEN 5 MG TABLET PO (08:48)
[2024-03-29] MEDS: SALINE 0.65% NAS SOLN 44 ML BTL 1 SPRAY NASAL (08:49)
[2024-03-29] MEDS: FERROUS GLUCONATE 324 MG TABLET PO (09:57)
[2024-03-29] MEDS: IBUPROFEN 400 MG TABLET 800 MG PO ×2 (09:58→22:57)
[2024-03-29] MEDS: amLODIPine BESYLATE 5 MG TABLET PO (11:15)
--- NOTE | 2024-03-29 12:30 | ADMGEN ---
This patient, Vanessa Goncalves, was admitted to 3 [facility] Surg Room 321-02 @ 1230. Patient/family oriented to hospital policies and general routines including ID bracelet, bed and alarms, visiting hours, pain management, procedures, bathroom and other care routines, personal items, smoking policy, room service/diet, and visiting hours. Information on how to activate the Rapid Response Team has been discussed. Patient/Family are encouraged to report perceived risks to care and to ask questions if they do not understand what they are told or what they should do.
--- NOTE | 2024-03-29 12:36 | PC.NURSE ---
This patient, Vanessa Goncalves, was transferred to [ 321-2] on 03/29/24 at 1225. Personal belongings sent with patient. Report given to [JOSE MARTIN Portillo ]. Appropriate documentation sent with patient.
--- NOTE | 2024-03-29 13:21 | PM.IMPN ---
Progress Note: A&P Assessment and Plan (1) Respiratory failure: Code(s): J96.90 - Respiratory failure, unspecified, unspecified whether with hypoxia or hypercapnia Status: Acute (2) Pneumonia: Code(s): J18.9 - Pneumonia, unspecified organism Status: Acute (3) Essential (primary) hypertension: Code(s): I10 - Essential (primary) hypertension Status: Acute (4) Anxiety: Code(s): F41.9 - Anxiety disorder, unspecified Status: Acute (5) Trimalleolar fracture of right ankle: Code(s): S82.851A - Displaced trimalleolar fracture of right lower leg, initial encounter for closed fracture Status: Acute (6) Migraine without aura, intractable, without status migrainosus: Code(s): G43.019 - Migraine without aura, intractable, without status migrainosus Status: Acute (7) Diaphragmatic hernia with obstruction, without gangrene: Code(s): K44.0 - Diaphragmatic hernia with obstruction, without gangrene Status: Acute (8) Morbid obesity with BMI of 40.0-44.9, adult: Code(s): E66.01 - Morbid (severe) obesity due to excess calories; Z68.41 - Body mass index [BMI] 40.0-44.9, adult Status: Acute (9) Acute hyponatremia: Code(s): E87.1 - Hypo-osmolality and hyponatremia Status: Acute Plan This is a 69-year-old female presenting with acute respiratory distress. Patient has significant work of breathing, significant hypertension in the 200s and conversational dyspnea. This was all sudden onset after. Patient was recently discharged from her acute rehab center today to a long-term care facility prior to the onset of these symptoms. Patient was started on BiPAP upon arrival to the ER. She was actively wheezing on presentation. Laboratory evaluation showed hemoglobin 11 point a ptosis. ABG with showed 7.42/35/194/22. Urinalysis suggestive of UTI. Electrolyte panel showed sodium level of 124 decreased compared to previous levels. CT of the chest showed no PE but right upper and right lower lobe opacities for atypical infection versus a aspiration pneumonia. 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 Patient was started on antibiotic with ceftriaxone and azithromycin. Urine studies have been sent. BiPAP p.r.n.. Will taper off BiPAP UTI: urine culture in process. on ceftriaxone. muslce spams: unclear etiology. urinary retention on jarvis catheter. needing reinsertion 03/22/24. Spasms on left leg and then goes to right, difficulty ambulating because ofthat. baclofen has helps. not able to tolerate gabapentin, cyclobenzaprine, amitriptyline, diclofenac and lidocaine. Also has cervical spondylosis. Intermittent spasms headaches history of it. One point in 2013 was admitted with similar symptoms all the workup with MRI brain negative. 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 Will further evaluate this with MRI brain lumbar spine and cervical spine Hypertension start amlodipine used to be on telmisartan also hydralazine per medical records Anxiety disorder home medication Recent trimalleolar fracture right ankle status post reduction follow-up with orthopedics as planned . orthopedics consulted. History of migraine Hypertension Iron deficiency DVT prophylaxis Lovenox Subjective Date/time seen: 03/29/24 13:21 Interval history: no ovenright evnets, feels ,off bipap now, no nausea, vomtiing. reports spasms in the legs which is chronic , non ambulatory Review of Systems Review of Systems: All systems reviewed & are unremarkable except as noted in HPI and below Exam Narrative: GENERAL: Awake and alert not in acute distress HEAD: Normocephalic, atraumatic EYES: PERRLA and EOMI ENT: Nares clear, no rhinorrhea or epistaxis. Mucous membranes moist. NECK: Supple. CHEST: Coarse breath sounds bilaterally Ki heard no respiratory distress HEART: Regular rate and rhythm No murmur heard. Normal peripheral pulses. ABDOMEN: Sof
[2024-03-29 15:15] LABS: Creatine Kinase 143 U/L (30-135)
[2024-03-29] MEDS: BACLOFEN 10 MG TABLET PO ×2 (15:23→20:19)
[2024-03-29] MEDS: cefTRIAXone 2 GM/NS 100 ML 2 GM/100 ML BAG IVPB (17:00)
[2024-03-29] MEDS: AZITHROMYCIN 500 MG/NS 250 ML 500 MG/250 ML BAG 250 MG IVPB (17:00)
[2024-03-30] VITALS (14 sets, daily range): BP systolic 139–168; BP diastolic 65–81; PULSE 61–85; RESP 16–24; TEMP 36–36.5; O2SAT 94–97
[2024-03-30] MEDS: HYDROcodone/acetaminophen (*CRX) 10-325 MG TABLET 1 TAB PO ×5 (00:29→21:28)
[2024-03-30] MEDS: LORazepam (*CRX) 0.5 MG TABLET PO ×2 (00:29→17:07)
[2024-03-30] MEDS: IPRATROPIUM 0.5 MG/ALBUTEROL SULFATE 2.5 MG AMPUL.NEB 3 ML INHALATION ×4 (02:21→20:52)
[2024-03-30] MEDS: FERROUS GLUCONATE 324 MG TABLET PO (07:51)
[2024-03-30] MEDS: FAMOTIDINE 20 MG TABLET PO ×2 (07:51→20:21)
[2024-03-30] MEDS: amLODIPine BESYLATE 5 MG TABLET PO (07:51)
[2024-03-30] MEDS: ASPIRIN 81 MG ENTERIC TABLET PO (07:51)
[2024-03-30] MEDS: METOPROLOL TARTRATE 50 MG TAB PO ×2 (07:51→20:21)
[2024-03-30] MEDS: BACLOFEN 10 MG TABLET PO ×3 (07:51→20:20)
[2024-03-30] MEDS: FLUTICASONE PROPIONATE 0.05% NA SPR 16 GM BTL (*BKC) 2 SPRAY NASAL (07:52)
[2024-03-30] MEDS: ENOXAPARIN 40 MG/0.4 ML SYRINGE SUB-Q (07:54)
[2024-03-30 10:16] LABS: Basophils Percent Auto 0.3 % (0.2-1.2); Eosinophils Absolute Auto 0.1 K/mm3 (0-0.3); Eosinophils Percent Auto 0.9 % (0-4.4); Hematocrit 35.1 % (37.0-47.0); Immature Granulocyte Absolute 0.03 K/mm3 (0.00-0.031); Immature Granulocyte Percent A 0.5 % (0-0.5); Lymphocytes Absolute Auto 0.62 K/mm3 (0.9-3.2); Lymphocytes Percent Auto 10.7 % (18.3-44.2); Mean Corpuscular HGB Conc 31.3 g/dl (32-36); Mean Corpuscular Hemoglobin 25.4 pg (26-34); Mean Corpuscular Volume 81.1 fl (80-100); Mean Platelet Volume 10.5 fl (7.4-10.4); Monocytes Absolute Auto 0.4 K/mm3 (0.1-0.6); Monocytes Percent Auto 6.9 % (2.6-8.5); Neutrophils Absolute Auto 4.7 K/mm3 (1.3-6.7); Neutrophils Percent Auto 80.7 % (45.5-73.1); Platelet Count Result 362 k/mm3 (150-375); Red Blood Count 4.33 M/mm3 (4.2-5.4); White Blood Count 5.8 K/mm3 (4.5-10.0)
[2024-03-30 10:25] LABS: Alanine Aminotransferase 28 U/L (6-35); Alkaline Phosphatase 122 U/L (38-126); Anion Gap 12 mmol/L (4-12); Aspartate Amino Transferase 38 U/L (14-36); Bilirubin,Total 0.4 mg/dL (0.2-1.3); Blood Urea Nitrogen 14 mg/dL (7-17); Calcium 9.6 mg/dL (8.4-10.2); Carbon Dioxide 24 mmol/L (22-30); Chloride 96 mmol/L (98-107); Estimated CRCL calculation 101 ml/min; Estimated Glomerular Filt Rate > 60; Glucose 134 mg/dL (65-110); Magnesium 1.8 mg/dL (1.6-2.3); Potassium 3.6 mmol/L (3.4-5.0); Sodium 132 mmol/L (137-145)
[2024-03-30] MEDS: LORazepam INJ (*CRX) 2 MG/ML VIAL 1 MG IV PUSH (11:29)
--- NOTE | 2024-03-30 12:01 | PM.IMPN ---
Progress Note: A&P Assessment and Plan (1) Respiratory failure: Code(s): J96.90 - Respiratory failure, unspecified, unspecified whether with hypoxia or hypercapnia Status: Acute (2) Pneumonia: Code(s): J18.9 - Pneumonia, unspecified organism Status: Acute (3) Essential (primary) hypertension: Code(s): I10 - Essential (primary) hypertension Status: Acute (4) Anxiety: Code(s): F41.9 - Anxiety disorder, unspecified Status: Acute (5) Trimalleolar fracture of right ankle: Code(s): S82.851A - Displaced trimalleolar fracture of right lower leg, initial encounter for closed fracture Status: Acute (6) Migraine without aura, intractable, without status migrainosus: Code(s): G43.019 - Migraine without aura, intractable, without status migrainosus Status: Acute (7) Diaphragmatic hernia with obstruction, without gangrene: Code(s): K44.0 - Diaphragmatic hernia with obstruction, without gangrene Status: Acute (8) Morbid obesity with BMI of 40.0-44.9, adult: Code(s): E66.01 - Morbid (severe) obesity due to excess calories; Z68.41 - Body mass index [BMI] 40.0-44.9, adult Status: Acute (9) Acute hyponatremia: Code(s): E87.1 - Hypo-osmolality and hyponatremia Status: Acute Plan This is a 69-year-old female presenting with acute respiratory distress. Patient has significant work of breathing, significant hypertension in the 200s and conversational dyspnea. This was all sudden onset after. Patient was recently discharged from her acute rehab center today to a long-term care facility prior to the onset of these symptoms. Patient was started on BiPAP upon arrival to the ER. She was actively wheezing on presentation. Laboratory evaluation showed hemoglobin 11 point a ptosis. ABG with showed 7.42/35/194/22. Urinalysis suggestive of UTI. Electrolyte panel showed sodium level of 124 decreased compared to previous levels. CT of the chest showed no PE but right upper and right lower lobe opacities for atypical infection versus a aspiration pneumonia. 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 Patient was started on antibiotic with ceftriaxone and azithromycin. Urine studies have been sent. BiPAP p.r.n.. Will taper off BiPAP . UTI: urine culture with E coli. Pansensitive. on ceftriaxone. muslce spams: unclear etiology. Hyponatremia slowly improving urinary retention on jarvis catheter. needing reinsertion 03/22/24. Continue on Jarvis catheter made try void trial prior to discharge. She has to follow-up with urology as an outpatient basis as well. Spasms on left leg and then goes to right, difficulty ambulating because ofthat. baclofen has helps. not able to tolerate gabapentin, cyclobenzaprine, amitriptyline, diclofenac and lidocaine. Also has cervical spondylosis. Intermittent spasms headaches history of it. One point in 2013 was admitted with similar symptoms all the workup with MRI brain negative. 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 Will further evaluate this with MRI brain lumbar spine and cervical spine Hypertension start amlodipine used to be on telmisartan also hydralazine per medical records . Amlodipine. Because of concern for spasms. She prefers to be back on hydralazine. Will order hydralazine Anxiety disorder home medication Recent trimalleolar fracture right ankle status post reduction follow-up with orthopedics as planned . orthopedics consulted. History of migraine Hypertension Iron deficiency DVT prophylaxis Lovenox Subjective Date/time seen: 03/30/24 12:01 Interval history: no overnight events. Feeling better. Some tightness in lower part of chest reported. Still wheezy. Getting breathing treatment. Going for an MRI today. on And off spasms persist Review of Systems Review of Systems: All systems reviewed & are unremarkable except as noted in HPI and below Exam Narrative:
[2024-03-30] MEDS: cefTRIAXone 2 GM/NS 100 ML 2 GM/100 ML BAG IVPB (16:54)
[2024-03-30] MEDS: hydrALAZINE HCL 25 MG TABLET PO (16:54)
[2024-03-30] MEDS: AZITHROMYCIN 500 MG/NS 250 ML 500 MG/250 ML BAG 150 MG IVPB (16:55)
[2024-03-30] MEDS: IBUPROFEN 400 MG TABLET 800 MG PO (17:06)
[2024-03-31] VITALS (9 sets, daily range): BP systolic 155–160; BP diastolic 71–91; PULSE 62–84; RESP 16–20; TEMP 35.7–36.2; O2SAT 95–98
[2024-03-31] MEDS: IBUPROFEN 400 MG TABLET 800 MG PO ×3 (01:47→21:05)
[2024-03-31] MEDS: LORazepam (*CRX) 0.5 MG TABLET PO ×3 (01:47→21:06)
[2024-03-31] MEDS: IPRATROPIUM 0.5 MG/ALBUTEROL SULFATE 2.5 MG AMPUL.NEB 3 ML INHALATION ×3 (02:39→20:34)
[2024-03-31 05:45] LABS: Basophils Percent Auto 0.6 % (0.2-1.2); Eosinophils Absolute Auto 0.1 K/mm3 (0-0.3); Eosinophils Percent Auto 1.8 % (0-4.4); Hematocrit 37.5 % (37.0-47.0); Hemoglobin 11.3 g/dL (12.0-15.0); Immature Granulocyte Absolute 0.02 K/mm3 (0.00-0.031); Immature Granulocyte Percent A 0.4 % (0-0.5); Lymphocytes Absolute Auto 0.85 K/mm3 (0.9-3.2); Lymphocytes Percent Auto 16.9 % (18.3-44.2); Mean Corpuscular HGB Conc 30.1 g/dl (32-36); Mean Corpuscular Hemoglobin 24.7 pg (26-34); Mean Corpuscular Volume 81.9 fl (80-100); Mean Platelet Volume 10.7 fl (7.4-10.4); Monocytes Absolute Auto 0.5 K/mm3 (0.1-0.6); Monocytes Percent Auto 9.1 % (2.6-8.5); Neutrophils Absolute Auto 3.6 K/mm3 (1.3-6.7); Neutrophils Percent Auto 71.2 % (45.5-73.1); Platelet Count Result 387 k/mm3 (150-375); Red Blood Count 4.58 M/mm3 (4.2-5.4); Red Cell Distribution Width 17.2 % (11.5-14.5)
[2024-03-31 05:55] LABS: Alanine Aminotransferase 29 U/L (6-35); Alkaline Phosphatase 123 U/L (38-126); Anion Gap 10 mmol/L (4-12); Aspartate Amino Transferase 36 U/L (14-36); Bilirubin,Total 0.3 mg/dL (0.2-1.3); Blood Urea Nitrogen 14 mg/dL (7-17); Calcium 9.8 mg/dL (8.4-10.2); Carbon Dioxide 26 mmol/L (22-30); Chloride 98 mmol/L (98-107); Estimated CRCL calculation 101 ml/min; Estimated Glomerular Filt Rate > 60; Glucose 111 mg/dL (65-110); Magnesium 1.9 mg/dL (1.6-2.3); Potassium 3.8 mmol/L (3.4-5.0); Sodium 134 mmol/L (137-145)
[2024-03-31] MEDS: FERROUS GLUCONATE 324 MG TABLET PO (08:14)
[2024-03-31] MEDS: METOPROLOL TARTRATE 50 MG TAB PO ×2 (08:14→21:06)
[2024-03-31] MEDS: BACLOFEN 10 MG TABLET PO ×3 (08:14→21:06)
[2024-03-31] MEDS: hydrALAZINE HCL 25 MG TABLET PO ×2 (08:14→17:30)
[2024-03-31] MEDS: FAMOTIDINE 20 MG TABLET PO ×2 (08:14→21:05)
[2024-03-31] MEDS: ASPIRIN 81 MG ENTERIC TABLET PO (08:14)
[2024-03-31] MEDS: ENOXAPARIN 40 MG/0.4 ML SYRINGE SUB-Q (08:15)
[2024-03-31] MEDS: HYDROcodone/acetaminophen (*CRX) 10-325 MG TABLET 1 TAB PO ×4 (08:29→21:05)
--- NOTE | 2024-03-31 12:50 | PM.IMPN ---
Progress Note: A&P Assessment and Plan (1) Respiratory failure: Code(s): J96.90 - Respiratory failure, unspecified, unspecified whether with hypoxia or hypercapnia Status: Acute (2) Pneumonia: Code(s): J18.9 - Pneumonia, unspecified organism Status: Acute (3) Essential (primary) hypertension: Code(s): I10 - Essential (primary) hypertension Status: Acute (4) Anxiety: Code(s): F41.9 - Anxiety disorder, unspecified Status: Acute (5) Trimalleolar fracture of right ankle: Code(s): S82.851A - Displaced trimalleolar fracture of right lower leg, initial encounter for closed fracture Status: Acute (6) Migraine without aura, intractable, without status migrainosus: Code(s): G43.019 - Migraine without aura, intractable, without status migrainosus Status: Acute (7) Diaphragmatic hernia with obstruction, without gangrene: Code(s): K44.0 - Diaphragmatic hernia with obstruction, without gangrene Status: Acute (8) Morbid obesity with BMI of 40.0-44.9, adult: Code(s): E66.01 - Morbid (severe) obesity due to excess calories; Z68.41 - Body mass index [BMI] 40.0-44.9, adult Status: Acute (9) Acute hyponatremia: Code(s): E87.1 - Hypo-osmolality and hyponatremia Status: Acute Plan This is a 69-year-old female presenting with acute respiratory distress. Patient has significant work of breathing, significant hypertension in the 200s and conversational dyspnea. This was all sudden onset after. Patient was recently discharged from her acute rehab center today to a long-term care facility prior to the onset of these symptoms. Patient was started on BiPAP upon arrival to the ER. She was actively wheezing on presentation. Laboratory evaluation showed hemoglobin 11 point a ptosis. ABG with showed 7.42/35/194/22. Urinalysis suggestive of UTI. Electrolyte panel showed sodium level of 124 decreased compared to previous levels. CT of the chest showed no PE but right upper and right lower lobe opacities for atypical infection versus a aspiration pneumonia. 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 Patient was started on antibiotic with ceftriaxone and azithromycin. Urine studies have been sent. BiPAP p.r.n.. Will taper off BiPAP . UTI: urine culture with E coli. Pansensitive. on ceftriaxone. Will switch to oral muslce spams: unclear etiology. Neurology consult. Could not tolerate MRI. Hyponatremia slowly improving urinary retention on jarvis catheter. needing reinsertion 03/22/24. Continue on Jarvis catheter made try void trial prior to discharge. She has to follow-up with urology as an outpatient basis as well. Spasms on left leg and then goes to right, difficulty ambulating because ofthat. baclofen has helps. not able to tolerate gabapentin, cyclobenzaprine, amitriptyline, diclofenac and lidocaine. Also has cervical spondylosis. Intermittent spasms headaches history of it. One point in 2013 was admitted with similar symptoms all the workup with MRI brain negative. 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 Will further evaluate this with MRI brain lumbar spine and cervical spine. Could not tolerate MRI. Will do CT Hypertension start amlodipine used to be on telmisartan also hydralazine per medical records . Amlodipine. Because of concern for spasms. She prefers to be back on hydralazine. Switch to hydralazine. Blood pressure acceptable Anxiety disorder home medication Recent trimalleolar fracture right ankle status post reduction follow-up with orthopedics as planned . orthopedics consulted. History of migraine Hypertension Iron deficiency DVT prophylaxis Lovenox Subjective Date/time seen: 03/31/24 12:50 Interval history: No new complaints. Still has some shortness of breath with exertion. Off oxygen. Could not tolerate MRI. Review of Systems Review of Systems: All systems reviewed & are unremarkable
[2024-03-31] MEDS: cefuroxime axetiL 250 MG TABLET 500 MG PO ×2 (14:00→21:06)
[2024-03-31] MEDS: AZITHROMYCIN 250 MG TABLET 500 MG PO (17:31)
[2024-03-31] MEDS: polyethylene glycoL 3350 17 GM POWD.PACK PO (17:53)
[2024-04-01] VITALS (13 sets, daily range): BP systolic 157–176; BP diastolic 83–94; PULSE 64–93; RESP 16–20; TEMP 35.1–36.4; O2SAT 94–99
[2024-04-01] MEDS: HYDROcodone/acetaminophen (*CRX) 10-325 MG TABLET 1 TAB PO ×4 (02:05→19:40)
[2024-04-01] MEDS: IPRATROPIUM 0.5 MG/ALBUTEROL SULFATE 2.5 MG AMPUL.NEB 3 ML INHALATION ×3 (02:13→13:50)
[2024-04-01 02:58] LABS: Legionella pneumophila Ag Ur NOT DETECTED
[2024-04-01] MEDS: IBUPROFEN 400 MG TABLET 800 MG PO ×2 (06:08→15:28)
[2024-04-01] MEDS: LORazepam (*CRX) 0.5 MG TABLET PO (06:08)
[2024-04-01 06:43] LABS: Basophils Percent Auto 0.7 % (0.2-1.2); Eosinophils Absolute Auto 0.1 K/mm3 (0-0.3); Eosinophils Percent Auto 2.7 % (0-4.4); Hematocrit 36.4 % (37.0-47.0); Hemoglobin 11.1 g/dL (12.0-15.0); Immature Granulocyte Absolute 0.02 K/mm3 (0.00-0.031); Immature Granulocyte Percent A 0.4 % (0-0.5); Lymphocytes Absolute Auto 0.87 K/mm3 (0.9-3.2); Lymphocytes Percent Auto 19.3 % (18.3-44.2); Mean Corpuscular HGB Conc 30.5 g/dl (32-36); Mean Platelet Volume 10.6 fl (7.4-10.4); Monocytes Absolute Auto 0.5 K/mm3 (0.1-0.6); Monocytes Percent Auto 10.2 % (2.6-8.5); Neutrophils Percent Auto 66.7 % (45.5-73.1); Platelet Count Result 389 k/mm3 (150-375); Red Blood Count 4.44 M/mm3 (4.2-5.4); Red Cell Distribution Width 17.2 % (11.5-14.5); White Blood Count 4.5 K/mm3 (4.5-10.0)
[2024-04-01 07:08] LABS: Alanine Aminotransferase 28 U/L (6-35); Alkaline Phosphatase 125 U/L (38-126); Anion Gap 9 mmol/L (4-12); Aspartate Amino Transferase 40 U/L (14-36); Bilirubin,Total 0.4 mg/dL (0.2-1.3); Blood Urea Nitrogen 16 mg/dL (7-17); Calcium 9.8 mg/dL (8.4-10.2); Carbon Dioxide 29 mmol/L (22-30); Chloride 97 mmol/L (98-107); Estimated CRCL calculation 100 ml/min; Estimated Glomerular Filt Rate > 60; Glucose 110 mg/dL (65-110); Magnesium 1.9 mg/dL (1.6-2.3); Potassium 3.7 mmol/L (3.4-5.0); Sodium 135 mmol/L (137-145)
[2024-04-01 07:09] LABS: Iron 43 ug/dL (37-170)
[2024-04-01 07:18] LABS: Percent Iron Saturation 12 % (20-50)
--- NOTE | 2024-04-01 07:33 | PM.PNORT ---
Progress Note: A&P Assessment and Plan (1) Trimalleolar fracture of right ankle: Code(s): S82.851A - Displaced trimalleolar fracture of right lower leg, initial encounter for closed fracture Status: Acute Assessment and Plan: Patient is status post total a I rather open reduction internal fixation for an ankle fracture right. X-rays look good. She should continue nonweightbearing status. Follow-up 1 month. Subjective Subjective Date/Time Seen: 04/01/24 07:33 Principal diagnosis: Ankle Fracture Review of Systems Musculoskeletal: Musculoskeletal: Reports myalgias, Reports arthralgias, Reports joint swelling and Reports stiffness Exam Narrative: Wound clean. NVI Objective Data Vital Signs Vital Signs: Vital Signs - 24 hr 03/31/24 08:14 03/31/24 08:00 03/31/24 13:38 Temperature Pulse Rate 75 Respiratory Rate Blood Pressure Pulse Oximetry 95 Oxygen Delivery Room Air Room Air Fraction of Inspired Oxygen 21 03/31/24 13:38 03/31/24 13:51 03/31/24 20:22 Temperature 96.2 F L Pulse Rate 68 67 80 Respiratory Rate 20 20 16 Blood Pressure 160/91 H Pulse Oximetry 97 Oxygen Delivery Fraction of Inspired Oxygen 03/31/24 20:34 03/31/24 20:34 03/31/24 21:06 Temperature Pulse Rate 84 81 Respiratory Rate 18 Blood Pressure Pulse Oximetry 98 Oxygen Delivery Room Air Fraction of Inspired Oxygen 03/31/24 21:05 03/31/24 20:40 04/01/24 02:15 Temperature Pulse Rate 80 85 Respiratory Rate 18 18 Blood Pressure Pulse Oximetry Oxygen Delivery Room Air Fraction of Inspired Oxygen 04/01/24 02:20 04/01/24 05:42 Temperature 95.1 F L Pulse Rate 86 65 Respiratory Rate 18 16 Blood Pressure 174/94 H Pulse Oximetry 99 Oxygen Delivery Fraction of Inspired Oxygen Intake/Output Intake/Output: Intake & Output 03/29/24 03/30/24 03/31/24 04/01/24 23:59 23:59 23:59 23:59 Intake Total 1550 860 720 Output Total 2150 2400 700 250 Balance -600 -1540 20 -250 Meds/Results Medications: Active Medications Generic Name Dose Route Start Last Admin Trade Name Freq PRN Reason Stop Dose Admin Acetaminophen 650 mg 03/28/24 06:00 Acetaminophen 325 Mg Tablet PO Q6HR PRN Pain Rated 1-3 Hydrocodone Bitart/Acetaminophen 1 tab 03/28/24 01:41 03/28/24 18:07 Hydrocodone/Acetaminophen (*Crx) 5-325 Mg Tablet PO 1 tab Q4H PRN Administration Pain Rated 4-6 Hydrocodone Bitart/Acetaminophen 1 tab 03/28/24 14:03 04/01/24 06:08 Hydrocodone/Acetaminophen (*Crx) 10-325 Mg Tablet PO 1 tab Q4H PRN Administration Pain Rated 7-10 Albuterol/Ipratropium 3 ml 03/28/24 08:00 04/01/24 02:13 Ipratropium 0.5 Mg/Albuterol Sulfate 2.5 Mg Ampul.Neb 3 Ml INHALATION 3 ml Q6HRT BEATRIS Administration Aspirin 81 mg 03/28/24 09:00 03/31/24 08:14 Aspirin 81 Mg Enteric Tablet PO 81 mg QAM BEATRIS Administration Baclofen 10 mg 03/28/24 02:15 03/31/24 21:06 Baclofen 10 Mg Tablet PO 10 mg QPM@2000 BEATRIS Administration Baclofen 10 mg 03/29/24 15:00 03/31/24 14:00 Baclofen 10 Mg Tablet PO 10 mg BID@0900,1500 BEATRIS Administration Cefuroxime Axetil 500 mg 03/31/24 13:00 03/31/24 21:06 Cefuroxime Axetil 250 Mg Tablet PO 04/02/24 21:01 500 mg Q12HR BEATRIS Administration Enoxaparin Sodium 40 mg 03/29/24 09:00 03/31/24 08:15 Enoxaparin 40 Mg/0.4 Ml Syringe SUB-Q 40 mg DAILY BEATRIS Administration Famotidine 20 mg 03/28/24 09:00 03/31/24 21:05 Famotidine 20 Mg Tablet PO 20 mg Q12HR BEATRIS Administration Ferrous Gluconate 324 mg 03/28/24 08:00 03/31/24 08:14 Ferrous Gluconate 324 Mg Tablet PO 324 mg DAILY@0800 BEATRIS Administration Fluticasone Propionate 2 spray 03/28/24 09:00 03/31/24 08:15 Fluticasone Propionate 0.05% Na Spr 16 Gm Btl (*Bkc) NASAL Not Given DAILY [facility] Hydralazine HCl 25 mg 03/30/24 17:00 03/31/24 17:30 Hydralazine Hc
[2024-04-01 08:29] LABS: Folic Acid 7.4 ng/mL (2.76->20); Vitamin B12 > 1000.0 pg/mL (239-931)
[2024-04-01] MEDS: cefuroxime axetiL 250 MG TABLET 500 MG PO ×2 (09:25→21:15)
[2024-04-01] MEDS: ENOXAPARIN 40 MG/0.4 ML SYRINGE SUB-Q (09:25)
[2024-04-01] MEDS: ASPIRIN 81 MG ENTERIC TABLET PO (09:25)
[2024-04-01] MEDS: METOPROLOL TARTRATE 50 MG TAB PO ×2 (09:26→21:15)
[2024-04-01] MEDS: predniSONE 20 MG TABLET 40 MG PO (09:26)
[2024-04-01] MEDS: FERROUS GLUCONATE 324 MG TABLET PO (09:26)
[2024-04-01] MEDS: FAMOTIDINE 20 MG TABLET PO ×2 (09:26→21:15)
--- NOTE | 2024-04-01 09:26 | WPDNEURCNPN ---
Assessment and Plan Assessment and plan (1) Lytic lesion of bone on x-ray: Code(s): M89.9 - Disorder of bone, unspecified Status: Acute (2) Morbid obesity with BMI of 40.0-44.9, adult: Code(s): E66.01 - Morbid (severe) obesity due to excess calories; Z68.41 - Body mass index [BMI] 40.0-44.9, adult Status: Acute (3) Urinary retention: Code(s): R33.9 - Retention of urine, unspecified Status: Acute (4) Multiple lesions of metastatic malignancy: Code(s): C79.9 - Secondary malignant neoplasm of unspecified site Status: Acute Plan 1. Widespread bone lesion consistent with metastatic disease along with the burst fracture of C7-T1 and T2 for which thoracic MRI has been suggested to rule out the possibility of a cord compression 2. Severe cervical lumbar spondylosis with moderate thoracic spondylosis 3. Large high sliding hiatal hernia 4. Small left pleural effusion 5. 9? levocurvature of the lumbar spine with widespread lytic and sclerotic lesion of the bones 6 compressive atelectasis in the bilateral lower lobes along with the large hiatal hernia continue entire stomach 7. Try malleolar fracture of the right ankle for which ortho PN and has already been obtained suggest long discussion with the patient is to be transferred to [facility] or central issue for the comprehensive tertiary care where neurosurgical opinion is also available along with the oncologist follow discussion with the patient in front of the witness is satisfied Consult date: 04/01/24 HPI: Vanessa Goncalves is a 69 year old female admitted to the hospital through the emergency room for the complaints of difficulties in breathing and with a past medical history of 1. Breast cancer 2. Recently diagnosed right trimalleolar fracture which has been repaired 3. History of recent hospitalization and subsequent admission to the skilled rehab 4. She started developing sudden onset of difficulties in breathing she was reportedly saturating in the low 90s and manifested some improvement she continued to have difficulties in conversation because the difficulties in breathing along with the chest tightness and also there was no history of COPD a bottle asthma in the past she was complaining of pain in right lower extremity where the recent procedure was done he was notedly anxious she has never had any respiratory distress in the past her medications included only iron supplements and cetirizine 10mg daily she has multiple allergies as outlined and carries the ongoing diagnosis of anxiety, atypical migraine, iron deficiency anemia and has had hysterectomy and lumpectomy on the left breast in the past currently alcohol intake 0 only half a beer once a month and initial exam in the emergency room was obviously with significant respiratory distress conversational dyspnea vital signs with blood pressure 194/95 CBC normal BMP with sodium only 125 PMFSH Past Medical History Medical History Anxiety Ataxia Atypical migraine Bartonella infection Breast cancer has reached 5 years. off anastrozole Closed right trimalleolar fracture Iron deficiency anemia, unspecified Trapezius strain Surgical History Surgical History H/O: hysterectomy History of lumpectomy of left breast Family History Family History Father Family history of cardiovascular disease Diabetes mellitus Family history of malignant neoplasm Mother Cerebrovascular accident Social History Social History Smoking status: Never smoker Alcohol intake: current Drinks per week: 0 Alcohol use details: half a beer once a month Substance use: never Substance use type: does not use Do You Feel Safe in your Home?: Yes Lack of Transportation: No Lack of Food: Never True Current Andres
[2024-04-01] MEDS: polyethylene glycoL 3350 17 GM POWD.PACK PO (09:27)
[2024-04-01] MEDS: hydrALAZINE HCL 25 MG TABLET PO ×3 (09:27→19:46)
[2024-04-01] MEDS: FLUTICASONE PROPIONATE 0.05% NA SPR 16 GM BTL (*BKC) 2 SPRAY NASAL (09:28)
[2024-04-01] MEDS: BACLOFEN 10 MG TABLET PO ×3 (09:28→21:15)
--- NOTE | 2024-04-01 09:58 | PDONCCN ---
HPI - Date of Consult Date/Time: 04/01/24 17:58 <Reed Sellers - 04/01/24 18:02> 04/01/24 09:58 <Vianey Charles - 04/01/24 10:00> Requesting Physician: Iris Walker MD <Reed Sellers - 04/01/24 18:02> Iris Walker MD <Vianey Charles - 04/01/24 10:00> Primary Care Provider: Pako Bella MD <Reed Sellers - 04/01/24 18:02> aPko Bella MD <Vianey Charles - 04/01/24 10:00> - Consult Narrative Reason for consult: Breast cancer and lytic lesions <Vianey Charles - 04/01/24 10:00> Narrative: Vanessa Goncalves is a 69 year old female <Reed Sellers - 04/01/24 18:02> Vanessa Goncalves is a 69 year old female with a past medical history of anxiety, migraines, SARA, breast cancer diagnosed in 2018, who was admitted for worsening shortness of breath requiring a short time frame of BiPAP and UTI. She had a trimallor fracture repaired and had a short stay at [facility]. Since before her fall, she reports muscle spams in her back and legs that have been ongoing for the last few months and has been given muscle relaxers without relief with ongoing back pain and neuropathy in her hands and feet. CT spine shows widespread bone lesions, consistent with metastatic disease, and pathologic burst fractures of C7, T1, and T2. Severe cervical and lumbar spondylosis and moderate thoracic spondylosis. MRI spine was ordered but cannot be completed d/t claustrophobia. She follows with Pamela Cunningham PRACTICE CLINICIAN at [facility] for her breast cancer and completed radiation, lumpectomy, and AI therapy until 2022. She also sees Dr Leroy at [facility] for anemia. She declines any other history of malignancy. She also denies any family history of cancer. Last mammogram 06/2023 showed benign findings. Recent DEXA this year showed no evidence of osteoporosis Labs today are notable for WBC 4.5, Hgb 11.1, Hct 36.4, Plt 381 Cr 0.60 <Vianey Charles - 04/01/24 10:20> Review of Systems - Neurologic Reports weakness <Vianey Charles - 04/01/24 10:00> [facility] Medical History: Medical History (Last Reviewed 04/01/24 @ 14:36 by Gerardo Manzano MD) Anxiety Ataxia Atypical migraine Bartonella infection Breast cancer has reached 5 years. off anastrozole Closed right trimalleolar fracture Iron deficiency anemia, unspecified Trapezius strain <Reed Sellers. - 04/01/24 18:02> Medical History (Last Reviewed 04/01/24 @ 14:36 by Gerardo Manzano MD) Anxiety Ataxia Atypical migraine Bartonella infection Breast cancer has reached 5 years. off anastrozole Closed right trimalleolar fracture Iron deficiency anemia, unspecified Trapezius strain <Vianey Charles - 04/01/24 15:51> Surgical History: Surgical History (Last Reviewed 04/01/24 @ 14:36 by Gerardo Manzano MD) H/O: hysterectomy History of lumpectomy of left breast <MarloReedLian - 04/01/24 18:02> Surgical History (Last Reviewed 04/01/24 @ 14:36 by Gerardo Manzano MD) H/O: hysterectomy History of lumpectomy of left breast <Vianey Charles - 04/01/24 15:51> Family History: Family History (Last Reviewed 04/01/24 @ 14:36 by Gerardo Manzano MD) Father Family history of cardiovascular disease Diabetes mellitus Family history of malignant neoplasm Mother Cerebrovascular accident <MarloReed. - 04/01/24 18:02> Family History (Last Reviewed 04/01/24 @ 14:36 by Gerardo Manzano MD) Father Family history of cardiovascular disease Diabetes mellitus Family history of malignant neoplasm Mother Cerebrovascular accident <Vianey Charles - 04/01/24 15:51> - Social History Social History: Social History (Last Reviewed 04/01/24 @ 14:36 by Gerardo Manzano MD) Alcohol Use: Alcohol intake: current Drinks per week: 0 Alcohol use details: half a beer once a month Substance Use: Substance use: never Substance use
[2024-04-01 10:28] LABS: Immunoglobulin A 298 mg/dL (70-400); Immunoglobulin G 745 mg/dL (700-1600); Immunoglobulin M 203 mg/dL (40-230)
--- NOTE | 2024-04-01 15:47 | PM.IMPN ---
Progress Note: A&P Assessment and Plan (1) Respiratory failure: Code(s): J96.90 - Respiratory failure, unspecified, unspecified whether with hypoxia or hypercapnia Status: Acute (2) Pneumonia: Code(s): J18.9 - Pneumonia, unspecified organism Status: Acute (3) Essential (primary) hypertension: Code(s): I10 - Essential (primary) hypertension Status: Acute (4) Anxiety: Code(s): F41.9 - Anxiety disorder, unspecified Status: Acute (5) Trimalleolar fracture of right ankle: Code(s): S82.851A - Displaced trimalleolar fracture of right lower leg, initial encounter for closed fracture Status: Acute (6) Migraine without aura, intractable, without status migrainosus: Code(s): G43.019 - Migraine without aura, intractable, without status migrainosus Status: Acute (7) Diaphragmatic hernia with obstruction, without gangrene: Code(s): K44.0 - Diaphragmatic hernia with obstruction, without gangrene Status: Acute (8) Morbid obesity with BMI of 40.0-44.9, adult: Code(s): E66.01 - Morbid (severe) obesity due to excess calories; Z68.41 - Body mass index [BMI] 40.0-44.9, adult Status: Acute (9) Acute hyponatremia: Code(s): E87.1 - Hypo-osmolality and hyponatremia Status: Acute Plan This is a 69-year-old female presenting with acute respiratory distress. Patient has significant work of breathing, significant hypertension in the 200s and conversational dyspnea. This was all sudden onset after. Patient was recently discharged from her acute rehab center to a long-term care facility prior to the onset of these symptoms. Patient was started on BiPAP upon arrival to the ER. She was actively wheezing on presentation. Laboratory evaluation showed hemoglobin 11 point a ptosis. ABG with showed 7.42/35/194/22. Urinalysis suggestive of UTI. Electrolyte panel showed sodium level of 124 decreased compared to previous levels. CT of the chest showed no PE but right upper and right lower lobe opacities for atypical infection versus a aspiration pneumonia. 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 Patient was started on antibiotic with ceftriaxone and azithromycin. This has been switched to oral antibiotics to cover for pneumonia. BiPAP p.r.n.. BiPAP has been tapered off. Currently on room air UTI: urine culture with E coli. Pansensitive. on ceftriaxone. Switched to oral Muscle spams: unclear etiology. Neurology consult. Could not tolerate MRI. CT cervical thoracic and lumbar spine showed multiple lytic lesions with pathology fracture of C7-T1 and T2. Concern for cord compression with lower extremity weakness present. Discussed finding with [facility] who has accepted the patient. Patient preferred to go to [place] so another call made to [facility] and has been accepted there as well. Awaiting bed placement. IV dexamethasone ordered. Cervical collar ordered. Oncology consultation obtained. She has been accepted by Dr. Leroy at [facility] Hyponatremia resolved urinary retention on jarvis catheter. needing reinsertion 03/22/24. Continue on Jarvis catheter. Will try void trial today with removal Jarvis and check postvoid residual if able to void. Replace Jarvis if not able to void or get sensation. She has to follow-up with urology as an outpatient basis as well. Spasms on left leg and then goes to right, difficulty ambulating because of that. baclofen has helps. not able to tolerate gabapentin, cyclobenzaprine, amitriptyline, diclofenac and lidocaine. Also has cervical spondylosis. Intermittent spasms headaches history of it. One point in 2013, she was admitted with similar symptoms all the workup with MRI brain negative. 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 Will further evaluate this with MRI brain lumbar spine and cervical spine. Could not tolerate MRI. CT spine was performed and findings
--- NOTE | 2024-04-01 16:21 | PM.DS ---
DS: Admitting Diagnosis Discharge Date 04/01/24 Admitting Diagnosis Shortness of breath DS: Discharge Diagnosis Discharge Diagnosis (1) Respiratory failure: Code(s): J96.90 - Respiratory failure, unspecified, unspecified whether with hypoxia or hypercapnia Status: Acute (2) Pneumonia: Code(s): J18.9 - Pneumonia, unspecified organism Status: Acute (3) Essential (primary) hypertension: Code(s): I10 - Essential (primary) hypertension Status: Acute (4) Anxiety: Code(s): F41.9 - Anxiety disorder, unspecified Status: Acute (5) Trimalleolar fracture of right ankle: Code(s): S82.851A - Displaced trimalleolar fracture of right lower leg, initial encounter for closed fracture Status: Acute (6) Migraine without aura, intractable, without status migrainosus: Code(s): G43.019 - Migraine without aura, intractable, without status migrainosus Status: Acute (7) Diaphragmatic hernia with obstruction, without gangrene: Code(s): K44.0 - Diaphragmatic hernia with obstruction, without gangrene Status: Acute (8) Morbid obesity with BMI of 40.0-44.9, adult: Code(s): E66.01 - Morbid (severe) obesity due to excess calories; Z68.41 - Body mass index [BMI] 40.0-44.9, adult Status: Acute (9) Acute hyponatremia: Code(s): E87.1 - Hypo-osmolality and hyponatremia Status: Acute (10) Multiple lesions of metastatic malignancy: Code(s): C79.9 - Secondary malignant neoplasm of unspecified site Status: Acute (11) Lytic lesion of bone on x-ray: Code(s): M89.9 - Disorder of bone, unspecified Status: Acute (12) Cervical spine fracture: Code(s): S12.9XXA - Fracture of neck, unspecified, initial encounter Status: Acute DS: Summary Hospital Course Hospital Course: This is a 69-year-old female presenting with acute respiratory distress. Patient has significant work of breathing, significant hypertension in the 200s and conversational dyspnea. This was all sudden onset after. Patient was recently discharged from her acute rehab center to a long-term care facility prior to the onset of these symptoms. Patient was started on BiPAP upon arrival to the ER. She was actively wheezing on presentation. Laboratory evaluation showed hemoglobin 11 point a ptosis. ABG with showed 7.42/35/194/22. Urinalysis suggestive of UTI. Electrolyte panel showed sodium level of 124 decreased compared to previous levels. CT of the chest showed no PE but right upper and right lower lobe opacities for atypical infection versus a aspiration pneumonia. 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 Patient was started on antibiotic with ceftriaxone and azithromycin. This has been switched to oral antibiotics to cover for pneumonia. BiPAP p.r.n.. BiPAP has been tapered off. Currently on room air UTI: urine culture with E coli. Pansensitive. on ceftriaxone. Switched to oral Muscle spams: unclear etiology. Neurology consulte. Plan for MRI spine however Could not tolerate MRI. CT cervical thoracic and lumbar spine showed multiple lytic lesions with pathology fracture of C7-T1 and T2. Concern for cord compression with lower extremity weakness present. This is a new diagnosis. Discussed finding with [facility] who has accepted the patient. Patient preferred to go to [place] so another call made to [facility] and has been accepted there as well. IV dexamethasone ordered. Cervical collar ordered. Oncology consultation obtained. She has been accepted by Dr. Leroy at [facility] and was subsequently transferred to [facility] Hyponatremia on admission resolved urinary retention on jarvis catheter. needing reinsertion 03/22/24. Continue on Jarvis catheter. Due to cervical fracture and immobility continued on Jarvis catheter without a void trial Spasms on left leg and then goes to
--- NOTE | 2024-04-01 17:51 | WPDNEUROSGCN ---
Assessment and Plan Assessment and plan (1) Multiple lesions of metastatic malignancy: Code(s): C79.9 - Secondary malignant neoplasm of unspecified site Status: Acute Assessment and Plan: Vanessa is a 69-year-old female with likely diffusely metastatic breast cancer by probability. None of this has been confirmed with tissue diagnosis. There is extensive bony destruction especially in the lower cervical and upper thoracic spine related to lytic lesions anteriorly and posteriorly. There is likely spinal cord compression at these levels although this cannot be visualized on the current studies. Patient requires imaging of her entire neuraxis, that is, the entire spine and brain given that word-finding difficulties were also present, to define the extent of the disease and any neurologic compression created by it which is likely in the low cervical and upper thoracic spine consistent with her examination. She is not able to do this without deep sedation or anesthesia, apparently. With regards to the spine, the diagnostic and therapeutic needs of this patient are beyond the capabilities of [facility]. I recommend transfer to a tertiary care center such as [facility] or [facility]. The underlying problem is likely metastatic breast cancer and her prognosis rests on the treatment of that issue. With regards to spinal cord she has a poor prognosis given that she has not been ambulatory related to the presumptive spinal cord issues in a month and has fairly severe deficits and is a very complicated anatomic and medical patient at this point. Her medical issues may complicate anesthesia and require intensive care. I explained all of this to the patient. Definitive tissue diagnosis could be performed by way of guided needle biopsy or at the time of an open surgery, if performed. Both of these things are outside the scope of the capabilities of this hospital. Decadron, 10 mg IV followed by 4 mg every 6 hours could be used to try to reduce any potential swelling in the spinal cord but I doubt this will affect the prognosis and should only be done if it is safe from the standpoint of her other medical concerns. She is incapable of ambulating but should remain on bed rest, regardless. As long as she remains on bed rest she can avoid wearing a hard cervical collar at all times. Care should be taken when log-rolling or turning the patient or manipulating the patient to keep her cervical spine in line. If a hard or soft collar would help with this the neck could be used temporarily for transfers. The patient is very negative about using a collar and would not likely consent to it. The patient is having significant pain in her right leg and in her neck and at times radiating into the shoulders and arms. This should be treated adequately. Consult date: 04/01/24 HPI: Vanessa Goncalves is a 69 year old female with past medical history significant for breast cancer diagnosed in 2018 treated with lumpectomy and radiation and potentially chemotherapy. Since November she has had neck pain and then had dysfunction in her right upper extremity by January. In early March she experienced a fall and broke her right foot requiring surgery here at [facility] on the . It was that day that she also knows that her left lower extremity was not functioning properly with significant weakness. She has not been ambulatory since those events. The left lower extremity weakness progressed and also involved the right lower extremity. She states that for some time she has not been able to move either in a significant way. She was transferred to a rehab and then to another facility and was noted to have a pneumonia was transferred to [facility] ER this last , for [address] scan was obtained yesterday of the cervical, thoracic and lumbar spines. This demonstrated lytic lesions throughout, worst at the C7 through T
[2024-04-01] MEDS: dexAMETHasone SOD PHOS INJ 4 MG/ML VIAL IV PUSH (19:40)
[2024-04-02 12:29] LABS: CA 15-3 41 U/mL (<32)
[2024-04-02 19:13] LABS: Pneumococcal Antigen Urine NOT DETECTED
[2024-04-03 17:38] LABS: Mycoplasma IgM Antibody Titer 437 U/mL
[2024-04-03 20:53] LABS: Immunofixation, Serum Normal pattern.
[2024-04-04 15:24] LABS: Methylmalonic Acid 185 nmol/L (69-390)
[2024-04-07 10:48] LABS: Kappa\\Lambda Light Chains 0.94 (0.26-1.65); Lambda Light Chain 33.7 mg/L (5.7-26.3)
[2024-04-11 14:39] LABS: Soluble Transferrin Receptor 2.56 mg/L (0.76-1.76)
--- NOTE | 2024-04-12 16:25 | PM.TDS ---
Transfer Discharge Sum: Prov Provider Date of admission: 03/27/24 21:34 Primary care physician: Pako Bella MD Admitting clinician: Iris Walker MD Consults: 03/28/24 Consult to Physician Routine Comment: Consulting Provider: Rodney Francis physician general internal medicine/MD group to consult: Orthopedics Reason for consultation: Post-op ORIF of Right ankle on 03/12/24 Has provider been notified: Yes Venous skilled nursing case manager Consult Routine Reason for Consult:: Difficult lab draw/venous access; limb alert to LUE. 03/31/24 12:50 Consult to Physician Routine Comment: spoke with @[phone] (,us) Consulting Provider: Bindu Avalos physician general internal medicine/MD group to consult: Neurology Reason for consultation: Muscle spasms Has provider been notified: Yes 03/31/24 16:35 Consult to Physician Routine Comment: spoke to @[phone] (,) Consulting Provider: Dimitri Dimas physician general internal medicine/MD group to consult: neurosurgery Reason for consultation: cervical and thoracic spine fractures Has provider been notified: Yes 03/31/24 16:58 Consult to Physician Routine Comment: spoke to @[phone] (,us) Consulting Provider: Reed Sellers physician general internal medicine/MD group to consult: oncology Reason for consultation: bone lytic lesions, hx of breast cancer dx 2018 in remission Has provider been notified: Yes DS: Admitting Diagnosis Discharge Date 04/01/24 Admitting Diagnosis Shortness of breath DS: Discharge Diagnosis Discharge Diagnosis (1) Respiratory failure: Code(s): J96.90 - Respiratory failure, unspecified, unspecified whether with hypoxia or hypercapnia Status: Acute (2) Pneumonia: Code(s): J18.9 - Pneumonia, unspecified organism Status: Acute (3) Essential (primary) hypertension: Code(s): I10 - Essential (primary) hypertension Status: Acute (4) Anxiety: Code(s): F41.9 - Anxiety disorder, unspecified Status: Acute (5) Trimalleolar fracture of right ankle: Code(s): S82.851A - Displaced trimalleolar fracture of right lower leg, initial encounter for closed fracture Status: Acute (6) Migraine without aura, intractable, without status migrainosus: Code(s): G43.019 - Migraine without aura, intractable, without status migrainosus Status: Acute (7) Diaphragmatic hernia with obstruction, without gangrene: Code(s): K44.0 - Diaphragmatic hernia with obstruction, without gangrene Status: Acute (8) Morbid obesity with BMI of 40.0-44.9, adult: Code(s): E66.01 - Morbid (severe) obesity due to excess calories; Z68.41 - Body mass index [BMI] 40.0-44.9, adult Status: Acute (9) Acute hyponatremia: Code(s): E87.1 - Hypo-osmolality and hyponatremia Status: Acute (10) Multiple lesions of metastatic malignancy: Code(s): C79.9 - Secondary malignant neoplasm of unspecified site Status: Acute (11) Lytic lesion of bone on x-ray: Code(s): M89.9 - Disorder of bone, unspecified Status: Acute (12) Cervical spine fracture: Code(s): S12.9XXA - Fracture of neck, unspecified, initial encounter Status: Acute Transfer Discharge Sum: Med Medications Active and Home Medications: Home Medications ferrous gluconate 256 mg (28 mg iron) tablet 256 mg PO DAILY 03/12/24 [History Confirmed 03/28/24] cetirizine 10 mg tablet (Zyrtec) 10 mg PO DAILY PRN Allergy Symptoms 03/13/24 [History Confirmed 03/28/24] acetaminophen 325 mg tablet 650 mg PO Q6HR #60 tabs 03/14/24 [Rx Confirmed 03/28/24] aspirin 81 mg capsule 81 mg PO DAILY #30 caps 03/14/24 [Rx Confirmed 03/28/24] L.acidophilus-L.bulgar-B.bifid-S.thermoph 1 billion cell-250 mg tablet (Cherry-Bid) 1 tab PO DAILY #0 tabs 03/26/24 [Rx Confirmed 03/28/24] baclofen 10 mg tablet 5 mg PO BID@0900,1500 #0 tabs 03/26/24 [Rx Confirmed 03/28/24] baclofen 10 mg tablet 10 mg PO QPM@2000 #0 tabs 03/26/24 [Rx Confirmed 03/28/24] famotidine 20 mg tablet 20 mg PO Q12HR #0 tabs 03/26
== END 2024-04-01 21:30 | disposition short-term general hospital (02) | DRG 194 ==
LOC: ANHED 21:33 → ANHIMU 22:08 → ANH3MEDSUR 03-29 11:43
PROVIDERS: Nurse Practitioner Family; Admitting Provider Internal Medicine; Emergency Provider Student in an Organized Health Care Education/Training Program; PCP Family Medicine; Visit Provider Internal Medicine
DX: J18.9 Pneumonia, unspecified organism (principal); C79.51 Secondary malignant neoplasm of bone; N39.0 Urinary tract infection, site not specified; Z68.42 Body mass index [BMI] 45.0-49.9, adult; E87.1 Hypo-osmolality and hyponatremia; J69.0 Pneumonitis due to inhalation of food and vomit; R06.03 Acute respiratory distress; B96.20 Unspecified Escherichia coli [E. coli] as the cause of diseases classified elsewhere; F41.9 Anxiety disorder, unspecified; E66.01 Morbid (severe) obesity due to excess calories; G43.019 Migraine without aura, intractable, without status migrainosus; D50.9 Iron deficiency anemia, unspecified; I10 Essential (primary) hypertension; M62.838 Other muscle spasm; R33.9 Retention of urine, unspecified; S82.851D Displaced trimalleolar fracture of right lower leg, subsequent encounter for closed fracture with routine healing; X58.XXXD Exposure to other specified factors, subsequent encounter; Z85.3 Personal history of malignant neoplasm of breast; Z90.710 Acquired absence of both cervix and uterus; M89.9 Disorder of bone, unspecified; M47.813 Spondylosis without myelopathy or radiculopathy, cervicothoracic region; K44.9 Diaphragmatic hernia without obstruction or gangrene
CPT/HCPCS: 36415; 36600; 70551; 71045; 71275; 72125; 72128; 72131; 73610; 80048; 80053; 81001; 82550; 82607; 82728; 82746; 82784; 82805; 83540; 83550; 83605; 83735; 83880; 83883; 83921; 84238; 84484; 85025; 85610; 85730; 86140; 86300; 86334; 86738; 87040; 87070; 87077; 87086; 87088; 87186; 87205; 87449; 87899; 93005; 94002; 94003; 94640; 96365; 96375; 97110; 97163; 97166; 97530; 99291; A9270; J0360; J0456; J0696; J1100; J1650; J1940; J2060; J2270; J7030; J7131; J7512; L0140; Q9967